=== PATIENT | female | born 1935 | race Caucasian/White ===

== ENCOUNTER 2018-12-11 13:38 | Emergency (ER) | payer OTHER ==
--- OUTSIDE RECORDS SUMMARY | 2018-12-11 13:40 | XMS REPORT | Clinical Summary ---
:1935 Author Organization [facility] Address [address] [place] [address] Care Team Providers Name Role Phone Ernestine Doan MD Primary Care Provider Allergies No Known Allergies Medications Medication Sig Dispensed Refills Start Date End Date Status metoprolol tartrate Take 50 mg by 0 Active (LOPRESSOR) 50 mg mouth 2 (two) tablet times a day. hydrALAZINE Take 10 mg by 0 Active (APRESOLINE) 10 MG mouth 2 (two) tablet times a day. cholecalciferol, Take 2,000 0 Active vitamin D3, Units by (VITAMIN D3) 2,000 mouth daily. unit capsule capsule amLODIPine Take 5 mg by 0 Active (NORVASC) 5 mg mouth daily. tablet rosuvastatin Take 20 mg by 0 Active (CRESTOR) 20 MG mouth daily. tablet estrogens, Take 1.25 mg 0 Active conjugated, by mouth (PREMARIN) 1.25 MG daily. tablet ezetimibe (ZETIA) Take 10 mg by 0 Active 10 mg tablet mouth daily. ALPRAZolam (XANAX) Take 0.25 mg 0 Active 0.25 MG tablet by mouth nightly. cevimeline (EVOXAC) Take 30 mg by 0 Active 30 mg capsule mouth 2 (two) times a day. levothyroxine Take 25 mcg 0 Active (SYNTHROID, by mouth LEVOXYL) 25 mcg every tablet morning. fenofibrate Take 48 mg by 3 06/12/2018 Active (TRICOR) 48 MG mouth daily. tablet omeprazole Take 1 90 capsule 3 09/28/2018 07/30/2019 Active (PriLOSEC) 40 MG capsule (40 capsule mg total) by mouth daily for 305 days. donepezil (ARICEPT) Take 10 mg by 0 07/06/2018 Discontinued 10 MG tablet mouth nightly. famotidine (PEPCID) Take 40 mg by 0 07/06/2018 Discontinued 40 MG tablet mouth nightly. omeprazole Take 1 90 capsule 3 07/06/2018 09/28/2018 Discontinued (PriLOSEC) 40 MG capsule (40 capsule mg total) by mouth daily. Active Problems Problem Noted Date CKD (chronic kidney disease) 07/06/2018 Nausea 07/06/2018 Hiatal hernia GERD (gastroesophageal reflux disease) Gastritis Dysphagia Chronic constipation Encounters Date Type Specialty Care Team Description 09/28/2018 Orders Only Gastroenterology Viktoria Yeung MA 08/11/2018 Telephone Gastroenterology Viktoria Yeung MA 07/21/2018 Telephone Gastroenterology Julienne Marshall 07/06/2018 Office Visit Gastroenterology Ever Pandya Chronic constipation (Primary Dx); MD Dede Nausea 06/07/2018 Hospital Encounter Radiology Ernestine Doan, Acute renal failure , unspecified acute renal failure type 06/07/2018 Hospital Encounter Radiology Ernestine Doan, Acute renal failure , unspecified acute renal failure type 06/07/2018 Transcribe Orders Radiology Ernestine Doan Acute renal failure, unspecified acute renal failure type (Primary Dx) 06/02/2018 Telephone Radiology Constance Noonan, JOSE LUIS 06/01/2018 Transcribe Orders Radiology Ernestine Doan Acute renal failure, unspecified acute renal failure type (Primary Dx) after 12/10/2017 Family History Relation Name Status Comments Father Mother Social History Tobacco Use Types Packs/Day Years Used Date Never Smoker Smokeless Tobacco: Never Used Alcohol Use Drinks/Week oz/Week Comments No Sex Assigned at Date Recorded Not on file Job Start Date Occupation Industry Not on file Not on file Not on file Travel History Travel Start Travel End No recent travel history available. Last Filed Vital Signs Vital Sign Reading Time Taken Blood Pressure 159/79 07/06/2018 1:35 PM CDT Pulse 73 07/06/2018 1:35 PM CDT Temperature 36.9 C (98.4 F) 07/06/2018 1:35 PM CDT Respiratory Rate 20 06/07/2018 2:30 PM CDT Oxygen Saturation 97% 06/07/2018 2:30 PM CDT Inhaled Oxygen Concentration - - Weight 44.9 kg (99 lb) 07/06/2018 1:35 PM CDT Height 161.3 cm (5' 3.5") 06/07/2018 9:51 AM CDT Body Mass Index 17.26 07/06/2018 1:35 PM CDT Plan of Treatment Health Maintenance Due Date Last Done Comments SHINGLES VACCINES (#1) 1985 65+ PNEUMOCOCCAL VACCINE (1 of 2 - PCV13) 2000 PNEUMOCOCCAL POLYSACCHARIDE VACCINE AGE 65 AND OVER 2000 INFLUENZA VACCINE 05/03/2018 Procedures Procedure Name Priority Date/Time Associated Diagnosis Comments SURGICAL PATHOLOGY Routine 06/07/2018 11:52 AM Results for this REQUEST CDT procedure are in the results section. SURGICAL PATHOLOGY Routine 06/07/2018 11:52 AM Results for this REQUEST CDT procedure are in the results section. US NEEDLE BIOPSY Routine 06/07/2018 11:00 AM Acute renal failure, Results for this CDT unspecified acute procedure are in renal failure type the results section. after 12/10/2017 Results Surgical pathology request (06/07/2018 11:52 AM CDT)Only the most recent of2 resultswithin the time period is included. [facility] DEPARTMENT OF PATHOLOGY AND GENOMIC MEDICINE Surgical pathology See link below for PDF Lab [facility] DEPARTMENT OF report Report PATHOLOGY AND GENOMIC MEDICINE Result status This is Supplemental Report [facility] DEPARTMENT OF for [id number] PATHOLOGY AND GENOMIC MEDICINE Performing Organization Address City/State/Zipcode Phone Number [facility] DEPARTMENT OF PATHOLOGY AND [address] [place] [address] GENOMIC MEDICINE US Needle Biopsy (06/07/2018 11:00 AM CDT) Narrative Performed At [facility] Examination:US NEEDLE BIOPSY Clinical history:"N17.9 Acute kidney failureunspecified, ACUTE RENAL FAILURE" Comparison:There are no prior studies for comparison. Conscious sedation:After the risks and benefits of conscious sedation were discussed, midazolam and fentanyl were administered intravenously.Throughout the conscious sedation duration, the patient was continuously monitored by a registered nurse. The physician intraservice [id number] time with the patient was 25 minutes. Technique:Alternative therapies and the procedure's risks and benefits were discussed with the patient.Written, informed consent was obtained. The left flank was imaged sonographically.An appropriate access site was chosen.The overlying skin was prepared using routine, sterile technique.For local analgesia, 1% buffered lidocaine solution was injected into the overlying soft tissues. Using real-time sonographic guidance, 2 18-gauge cores were obtained.The sample obtained was reviewed by the attending pathologist and was deemed sufficient for diagnostic evaluation. Estimated blood loss:Less than 1 cc. Complications:None. Specimens removed:As above. Assistants:None. IMPRESSION: Technically successful left [place] kidney biopsy. Thank you for allowing us to participate in the care of your patient. [facility]-[id number] Procedure Note Hm Interface, Radiology Results Incoming - 06/07/2018 2:58 PM CDT Examination: US NEEDLE BIOPSY Clinical history: "N17.9 Acute kidney failure unspecified, ACUTE RENAL FAILURE" Comparison: There are no prior studies for comparison. Conscious sedation: After the risks and benefits of conscious sedation were discussed, midazolam and fentanyl were administered intravenously. Throughout the conscious sedation duration, the patient was continuously monitored by a registered nurse. The physician intraservice [id number] time with the patient was 25 minutes. Technique: Alternative therapies and the procedure's risks and benefits were discussed with the patient. Written, informed consent was obtained. The left flank was imaged sonographically. An appropriate access site was chosen. The overlying skin was prepared using routine, sterile technique. For local analgesia, 1% buffered lidocaine solution was injected into the overlying soft tissues. Using real-time sonographic guidance, 2 18-gauge cores were obtained. The sample obtained was reviewed by the attending pathologist and was deemed sufficient for diagnostic evaluation. Estimated blood loss: Less than 1 cc. Complications: None. Specimens removed: As above. Assistants: None. IMPRESSION: Technically successful left [place] kidney biopsy. Thank you for allowing us to participate in the care of your patient. [facility]-[id number] Performing Organization Address City/State/Zipcode Phone Number [facility] [address] [place] [address] after 12/10/2017 Insurance Payer Benefit Plan / Group Subscriber ID Type Phone Address HUMANA MEDICARE HUMANA MEDICARE PPO/PFFS/ERS [facility] xxxxxxxxx PPO (Home) [place] [address] Aliyah Flores Reconstructive Self 1935 [facility]-[id number] [place] [address] (Home) [place] [address] Advance Directives Patient has advance care planning documents on file. For more information, please contact:Jean-Claude Harding[address] [place] [address]
--- NOTE | 2018-12-11 15:15 | EKG ---
Test Date: 2018-12-11 Test Time: 14:38:29 Meal Room Hand: ESTHELA MEASUREMENT RESULTS: Intervals: Rate: 83 PA: 130 QRSD: 70 QT: 398 QTc: 467 [place]: P: 60 PA: 130 QRS: 68 T: 75 INTERPRETIVE STATEMENTS: Normal sinus rhythm Septal infarct, age undetermined Abnormal ECG Compared to ECG 12/16/2016 17:29:00 Myocardial infarct finding now present Sinus tachycardia no longer present Electronically Signed On 12-11-18 15:14:04 CDT by Nick Menezes
--- NOTE | 2018-12-11 18:22 | ER ---
Nurse's Notes [facility] Name: Aliyah Flores Age: 83 yrs Sex: Female : 1935 Arrival Date: 12/11/2018 Time: 13:42 Bed Waiting Private MD: Bud Franklin C Diagnosis: Presentation: 12/11 13:56 Presenting complaint: Patient states: shortness of breath and fatigue on exertion x 3 ss days. Transition of care: patient was not received from another setting of care. Onset of symptoms was December 08, 2018. Risk Assessment: Do you want to hurt yourself or someone else? Patient reports no desire to harm self or others. Initial Sepsis Screen: Does the patient meet any 2 criteria? No. Patient's initial sepsis screen is negative. Does the patient have a suspected source of infection? No. Patient's initial sepsis screen is negative. Care prior to arrival: None. 13:56 Method Of Arrival: Wheelchair 13:56 Acuity: AG 3 ss Historical: - Allergies: 13:59 Azithromycin; ss - PSHx: 13:59 Hysterectomy; Mastectomy; ss - Immunization history:: Adult Immunizations up to date. - Social history:: Smoking status: Patient/guardian denies using tobacco. - Ebola Screening: : Patient denies exposure to infectious person Patient denies travel to an Ebola-affected area in the 21 days before illness onset. Assessment: 16:00 Reassessment: Pt left due to wait time. Vital Signs: 13:59 BP 103 / 56; Pulse 86; Resp 16; Temp 97.2(TE); Pulse Ox 99% on R/A; Weight 44 kg (M); ss Height 5 ft. 3 in. (160.02 cm); Pain 0/10; 13:59 Body Mass Index 17.18 (44.00 kg, 160.02 cm) ED Course: 13:42 Patient arrived in ED. mr 13:42 Bud Franklin MD is Private Physician. mr 13:58 Triage completed. ss 13:59 Arm band placed on right wrist. ss 14:55 EKG done, by pharmacy technology instructor. dt2 Administered Medications: No medications were administered Outcome: 16:00 Eloped from waiting room. ss 18:21 Patient left the ED. Signatures: Ameena Gurrola Shelby, RN RN ss Padma Keating
[2018-12-11 18:35] VITALS: BP 103/56; TEMP 97.2; O2SAT 99
== END 2018-12-11 18:21 | disposition left against medical advice (07) ==
LOC: ER 13:38
DX: R06.02 Shortness of breath (principal); Z88.1 Allergy status to other antibiotic agents; Z53.21 Procedure and treatment not carried out due to patient leaving prior to being seen by health care provider
CPT/HCPCS: 93005; 99282

== ENCOUNTER 2020-02-28 08:35 | Day surgery (SDC) | payer OTHER ==
--- NOTE | 2020-02-28 09:04 | RAD REPORT ---
EXAM DESCRIPTION: Sebastien Venegas (2 Views)02/28/2020 8:58 am CLINICAL HISTORY: Preop for temporal artery biopsy COMPARISON: 2019 FINDINGS: The lungs appear clear of acute infiltrate. Lungs are hyperaerated The heart is mildly to moderately enlarged IMPRESSION: COPD without visualization acute abnormality
[2020-02-28] MEDS ORDERED: LIDOCAINE 2% MPF 5 ML VIAL ONE (09:34)
[2020-02-28] MEDS ORDERED: FENTANYL CITR 100 MCG/2 ML ONE (09:34)
[2020-02-28] MEDS ORDERED: propofoL 200 MG/20 ML VIAL IV ONE (09:34)
[2020-02-28] MEDS ORDERED: CEFAZOLIN/SWI 1gm 1 GM/10 ML SYR ONE (09:54)
[2020-02-28] MEDS ORDERED: Ringers Lactate 1,000 ML IV ONE (09:54)
--- OUTSIDE RECORDS SUMMARY | 2020-02-28 09:55 | XMS REPORT | Clinical Summary ---
:1935 Author Organization [facility] Address [address] [place] [address] Care Team Providers Name Role Phone Robyn Doan MD Primary Care Provider Allergies No Known Allergies Medications Medication Sig Dispensed Refills Start Date End Date Status metoprolol tartrate Take 50 mg by 0 Active (LOPRESSOR) 50 mg mouth 2 (two) tablet times a day. hydrALAZINE Take 10 mg by 0 Acti ve (APRESOLINE) 10 MG mouth 2 (two) tablet times a day. cholecalciferol, Take 2,000 Units 0 Active vitamin D3, (VITAMIN by mouth daily. D3) 2,000 unit capsule capsule amLODIPine (NORVASC) 5 Take 5 mg by 0 Active mg tablet mouth daily. rosuvastatin (CRESTOR) Take 20 mg by 0 Active 20 MG tablet mouth daily. estrogens, conjugated, Take 1.25 mg by 0 Active (PREMARIN) 1.25 MG mouth daily. tablet ezetimibe (ZETIA) 10 mg Take 10 mg by 0 Active tablet mouth daily. ALPRAZolam (XANAX) 0.25 Take 0.25 mg by 0 Active MG tablet mouth nightly. cevimeline (EVOXAC) 30 Take 30 mg by 0 Active mg capsule mouth 2 (two) times a day. levothyroxine Take 25 mcg by 0 A ctive (SYNTHROID, LEVOXYL) 25 mouth every mcg tablet morning. fenofibrate (TRICOR) 48 Take 48 mg by 3 06/12/2018 Active MG tablet mouth daily. omeprazole (PriLOSEC) Take 1 capsule 90 capsule 3 09/28/2018 Active 40 MG capsule (40 mg total) by mouth daily for 305 days. Active Problems Problem Noted Date CKD (chronic kidney disease) 07/06/2018 Nausea 07/06/2018 Hiatal hernia GERD (gastroesophageal reflux disease) Gastritis Dysphagia Chronic constipation Family History Relation Name Status Comments Father [...] travel history available. 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
[2020-02-28] MEDS ORDERED: LIDOCAINE 1% 20 ML MDV ONE (10:35)
[2020-02-28] MEDS ORDERED: CODEINE 30MG/APAP 300MG TAB ONE (12:43)
[2020-02-28 13:49] VITALS: BP 131/59; TEMP 97.2; O2SAT 96
--- NOTE | 2020-02-28 19:57 | OP ---
Date of Procedure: 02/28/2020 Surgeon: Yuan Campbell MD Motorbike Courier: CHRISTAL Pfeiffer. Preoperative Diagnosis: Right-sided headache, rule out temporal arteritis with elevated CRP and sedi mentation rate. Postoperative Diagnosis: Right-sided headache, rule out temporal arteritis with elevated CRP and sed imentation rate. Procedure: Right temporal artery biopsy. Utilization of Doppler device for identification of the te mporal branch of the temporal artery. Estimated Blood Loss: Minimal. Specimen: Right temporal artery. Findings: As above. Anesthesia: MAC. Complications: None. Patient tolerated the procedure in stable condition, taken to the Recovery in good general condition. Procedure In Detail: Patient was brought to the OR and placed in supine position. MAC anesthesia wa s begun. The patient was prepped and draped in the usual sterile fashion. After MAC anesthesia begu n, then Doppler device was used to identify branch of the temporal artery anterior and superior to th e right ear and then lidocaine 1% infiltrated locally. A 15-blade was used to make a 4 cm incision. The temporal artery identified, proximal and distal control obtained, then 4 cm segment excised and sent to Pathology and then 4-0 silk used to tie off both ends, wound irrigated, bleeding controlled w ith cautery, 4-0 chromic used for subcutaneous tissue and close the skin. Sterile dressing applied. Patient was awakened and taken to Recovery room in good general condition. Discharge Note: Patient will go to Day Surgery and home when stable. Disposition: Home. Condition: Stable. Discharge Instructions: Resume home medications and diet. Activity as tolerated. No heavy lifting. Remove outer dressing in 2 days. Shower. Keep the Steri-Strips on all at times. Tylenol No.3 one tablet p.o. q.4 p.r.n. pain. Follow up in my office in 2 weeks, call for appointment. Follow up [facility] Dr. Salas in 1 week. /MODL Voice ID: [id number] Report ID: [id number]
--- NOTE | 2020-03-01 13:03 | EKG ---
Test Date: 2020-02-28 Test Time: 09:15:02 Car Supervisor: ARBEN MEASUREMENT RESULTS: Intervals: Rate: 89 MD: 166 QRSD: 72 QT: 398 QTc: 484 [place]: P: 77 MD: 166 QRS: 72 T: 67 INTERPRETIVE STATEMENTS: Normal sinus rhythm with sinus arrhythmia Normal ECG Compared to ECG 12/11/2018 14:38:29 Myocardial infarct finding no longer present Electronically Signed On 03-01-20 13:03:07 CDT by Dinesh Malik
== END 2020-02-28 13:25 | disposition home or self-care (01) ==
LOC: OR 08:35
PROVIDERS: ATTEND Surgery
PROC: 03BS0ZX Excision of Right Temporal Artery, Open Approach, Diagnostic (ICD-10-PCS; principal; 2020-02-28 10:15)
DX: R51 Headache (principal); H53.121 Transient visual loss, right eye; R79.82 Elevated C-reactive protein (CRP); R70.0 Elevated erythrocyte sedimentation rate
CPT/HCPCS: 37609; 93005; 88305; 71046; J2704; J3010; J0690; J7120

== ENCOUNTER 2020-03-27 11:49 | Inpatient (IN) | payer OTHER ==
[2020-03-27] MEDS ORDERED: ACETAMINOPHEN 500 MG TAB ONE (12:17)
[2020-03-27] MEDS ORDERED: NA CHLORIDE 0.9% 2,000 ML ONE (12:18)
[2020-03-27] MEDS ORDERED: Levofloxacin500mg IV 500 MG/100 ML BAG IV ONE (12:18)
[2020-03-27] MEDS ORDERED: CEFTRIAXONE/SWI 1gm 2 GM/20 ML SYR ONE (12:18)
--- NOTE | 2020-03-27 12:30 | RAD REPORT ---
EXAM DESCRIPTION: RAD - Chest Single View - 03/27/2020 12:24 pm CLINICAL HISTORY: Fever;Dyspnea Chest pain. COMPARISON: Chest Pa And Lat (2 Views) dated 02/28/2020; Chest Pa And Lat (2 Views) dated 12/12/2018; Chest Pa And Lat (2 Views) dated 03/23/2018; Chest Single View dated 12/16/2016 FINDINGS: Portable technique limits examination quality. Opacities are present in both lung bases likely representing pneumonia. Superimposition of soft tissu e limits evaluation. The heart is normal in size. No displaced fractures.
[2020-03-27 12:36] LABS: Absolute Lymphocytes (CBC) 0.3 K/uL (0.7-4.9); Basophils % 0.5 % (0-1.3); Hematocrit 34.5 % (36.0-45.0); Lymphocytes % 3.1 % (15.3-44.8); MPV 7.6 fL (7.6-11.3); RBC Red Blood Cell Count 3.66 M/uL (3.86-4.86)
[2020-03-27 13:09] LABS: ALT/SGPT 43 U/L (12-78); AST/SGOT 34 U/L (15-37); Albumin 2.8 g/dL (3.4-5.0); Alkaline Phosphatase 53 U/L (45-117); Amylase 69 U/L (25-115); BUN Blood Urea Nitrogen 37 mg/dL (7-18); Bicarbonate 29 mmol/L (21-32); Bilirubin Direct 0.1 mg/dL (0-0.2); Bilirubin Total 0.5 mg/dL (0.2-1.0); Creatine Phosphokinase 58 U/L (26-192); Ferritin 135.7 ng/mL (8-388); Glucose Level 154 mg/dL (74-106); Lipase 63 U/L (73-393); Protein, Total 6.6 g/dL (6.4-8.2); Sodium Level 136 mmol/L (136-145); Troponin (Emerg Dept Use Only) < 0.02 ng/mL (0.0-0.045)
[2020-03-27 13:14] LABS: Protime INR 0.92
--- OUTSIDE RECORDS SUMMARY | 2020-03-27 13:31 | XMS REPORT | Clinical Summary ---
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
--- NOTE | 2020-03-27 14:02 | EDPHYS ---
Physician Documentation [facility] Name: Aliyah Flores Age: 84 yrs Sex: Female : 1935 Arrival Date: 03/27/2020 Time: 11:59 Bed 8 Private MD: ED Physician Zia Brand HPI: 03/27 16:39 This 84 yrs old Female presents to ER via EMS with complaints of Fever, jr8 Cough, Shortness Of Breath. 16:39 The patient reports fever, with an emergency department temperature of 103 degrees jr8 Fahrenheit. Onset: The symptoms/episode began/occurred acutely, 2 day(s) ago. Modifying factors: there are no obvious modifying factors. Associated signs and symptoms: Pertinent positives: arthralgias, cough, myalgias. Severity of symptoms: At their worst the symptoms were moderate in the emergency department the symptoms are unchanged. The patient has not experienced similar symptoms in the past. The patient has not recently seen a physician. Historical: - Allergies: 12:03 Azithromycin; em - PMHx: 12:03 COPD; em - PSHx: 12:03 Hysterectomy; em 12:03 Mastectomy, Left; Mastectomy, Right; em - Immunization history:: Adult Immunizations up to date. - Social history:: Smoking status: Patient denies any tobacco usage or history of. ROS: 16:39 Eyes: Negative for injury, pain, redness, and discharge, ENT: Negative for injury, jr8 pain, and discharge, Neck: Negative for injury, pain, and swelling, Cardiovascular: Negative for chest pain, palpitations, and edema, Abdomen/GI: Negative for abdominal pain, nausea, vomiting, diarrhea, and constipation, Back: Negative for injury and pain, MS/Extremity: Negative for injury and deformity, Skin: Negative for injury, rash, and discoloration, Neuro: Negative for headache, weakness, numbness, tingling, and seizure. 16:39 Constitutional: Positive for body aches, chills, fever. 16:39 Respiratory: Positive for cough, shortness of breath. Exam: 16:39 Eyes: Pupils equal round and reactive to light, extra-ocular motions intact. Lids and jr8 lashes normal. Conjunctiva and sclera are non-icteric and not injected. Cornea within normal limits. Periorbital areas with no swelling, redness, or edema. ENT: Nares patent. No nasal discharge, no septal abnormalities noted. Tympanic membranes are normal and external auditory canals are clear. Oropharynx with no redness, swelling, or masses, exudates, or evidence of obstruction, uvula midline. Mucous membranes moist. Abdomen/GI: Soft, non-tender, with normal bowel sounds. No distension or tympany. No guarding or rebound. No evidence of tenderness throughout. Back: No spinal tenderness. No costovertebral tenderness. Full range of motion. Skin: Warm, dry with normal turgor. Normal color with no rashes, no lesions, and no evidence of cellulitis. MS/ Extremity: Pulses equal, no cyanosis. Neurovascular intact. Full, normal range of motion. Neuro: Awake and alert, GCS 15, oriented to person, place, time, and situation. Cranial nerves II-XII grossly intact. Motor strength 5/5 in all extremities. Sensory grossly intact. Cerebellar exam normal. Normal gait. 16:39 Cardiovascular: Rate: tachycardic, Rhythm: regular, Pulses: Pulses are 2+ in right radial artery and left radial artery. Heart sounds: normal, normal S1and S2, no S3 or S4, no murmur, no rub, no gallop, Edema: is not appreciated. 16:39 Respiratory: mild respiratory distress is noted, Respirations: tachypnea, that is mild, Breath sounds: rales, that are mild, are located in both bases. Vital Signs: 11:59 BP 133 / 66; Pulse 113; Resp 26; Temp 103.0(O); Pulse Ox 83% on R/A; Weight 43.09 kg; em Height 5 ft. 4 in. (162.56 cm); Pain 0/10; 12:37 BP 128 / 62; Pulse 111; Resp 14; Pulse Ox 98% ; sv 13:41 BP 133 / 66; Pulse 103; Resp 18; Temp 100.1(O); Pulse Ox 99% on 2 lpm NC; em 14:21 BP 131 / 61; Pulse 94; Resp 12; Pulse Ox 100% ; sv 15:00 BP 124 / 64; Pulse 95; Resp 14; Pulse Ox 97% ; sv 16:00 BP 117 / 68; Pulse 95; Resp 16; Pulse Ox 97% ; sv 11:59 Body Mass Index 16.31 (43.09 kg, 162.56 cm) em 11:59 placed on 2 L via NC, SPO2 98% em MDM: 12:03 Patient medically screened. [facility] 13:59 Data reviewed: vital signs, nurses notes, lab test result(s), EKG, radiologic studies, [facility] plain films. Data interpreted: Pulse oximetry: on room air is 83 %. Interpretation: hypoxia. Counseling: I had a detailed discussion with the patient and/or guardian regarding: the historical points, exam findings, and any diagnostic results supporting the discharge/admit diagnosis, lab results, radiology results, the need for further work-up and treatment in the hospital. Physician consultation: Molina Salas MD was called at 14:00, was contacted at 14:00, regarding admission, to the telemetry unit. consult, patient's condition, and will see patient. 03/27 12:04 Order name: Fibrinogen [facility] 03/27 12:04 Order name: Urine Culture [facility] 03/27 12:04 Order name: C-Reactive Protein [facility] 03/27 12:04 Order name: Amylase, Serum [facility] 03/27 12:04 Order name: Basic Metabolic Panel [facility] 03/27 12:04 Order name: Blood Culture Adult (2) [facility] 03/27 12:04 Order name: CBC with Diff; Complete Time: 15:[address] [facility] 03/27 12:04 Order name: CPK; Complete Time: 13:[address] [facility] 03/27 12:04 Order name: Lactate; Complete Time: 13:[address] [facility] 03/27 12:04 Order name: LFT's; Complete Time: 13:[address] [facility] 03/27 12:04 Order name: Lipase; Complete Time: 13:[address] [facility] 03/27 12:04 Order name: Procalcitonin; Complete Time: 13:[address] [facility] 03/27 12:04 Order name: Protime (+inr); Complete Time: 13:[address] [facility] 03/27 12:04 Order name: Ptt, Activated; Complete Time: 13:[address] [facility] 03/27 12:04 Order name: Troponin (emerg Dept Use Only); Complete Time: 13:[address] [facility] 03/27 12:04 Order name: Urine Microscopic Only [facility] 03/27 12:04 Order name: Chest Single View XRAY; Complete Time: 13:[address] [facility] 03/27 12:04 Order name: LDH; Complete Time: 13:[address] [facility] 03/27 12:04 Order name: Ferritin; Complete Time: 13:[address] [facility] 03/27 12:05 Order name: Fibrinogen; Complete Time: 13:15 [facility] 03/27 12:05 Order name: Urine Culture [facility] 03/27 12:05 Order name: C-Reactive Protein; Complete Time: 13:15 [facility] 03/27 12:05 Order name: Amylase; Complete Time: 13:15 [facility] 03/27 12:05 Order name: Basic Metabolic Panel; Complete Time: 13:15 [facility] 03/27 12:06 Order name: COVID-[address] [facility] 03/27 12:06 Order name: Strep; Complete Time: 13:[address] [facility] 03/27 13:16 Order name: Throat Culture [facility] 03/27 15:33 Order name: Manual Differential; Complete Time: 15:39 [facility] 03/27 12:04 Order name: Accucheck; Complete Time: 12:[address] [facility] 03/27 12:04 Order name: Cardiac monitoring; Complete Time: 12:[address] [facility] 03/27 12:04 Order name: EKG - Nurse/Tech; Complete Time: 12:[address] [facility] 03/27 12:04 Order name: IV Saline Lock - Large Bore; Complete Time: 12:[address] [facility] 03/27 12:04 Order name: Labs collected and sent; Complete Time: 12:[address] [facility] 03/27 12:04 Order name: O2 Per Protocol; Complete Time: 12:[address] [facility] 03/27 12:04 Order name: O2 Sat Monitoring; Complete Time: 12:[address] [facility] 03/27 14:33 Order name: CONS Physician Consult [facility] 03/27 16:00 Order name: Diet Regular; Complete Time: 16:00 em Administered Medications: 12:17 Drug: Acetaminophen 1000 mg Route: PO; sv 13:41 Follow up: Response: No adverse reaction; Marked relief of symptoms; Temperature is em decreased 12:35 Drug: NS 0.9% (30 ml/kg) 30 ml/kg Route: IV; Rate: bolus; Site: right forearm; em 14:28 Follow up: Response: No adverse reaction; IV Status: Completed infusion; IV Intake: em 1300ml 12:35 Drug: Rocephin 2 grams Route: IV; Rate: calculated rate; Site: right forearm; em 12:40 Follow up: Response: No adverse reaction; IV Status: Completed infusion; IV Intake: 10mlem 12:41 Drug: LevaQUIN 500 mg Volume: 100 ml; Route: IVPB; Infused Over: 60 mins; Site: right em forearm; 13:50 Follow up: Response: No adverse reaction; IV Status: Completed infusion; IV Intake: em 100ml Disposition: 19:38 Co-signature as Attending Physician, Zia Brand MD. [email or web address] Disposition: 03/27/20 14:01 Hospitalization ordered by Molina Salas for Inpatient Admission. Preliminary diagnosis are Pneumonia, Acute respiratory failure. - Bed requested for Telemetry/MedSurg (Inpatient). - Status is Inpatient Admission. em - Condition is Stable. - Problem is new. - Symptoms have improved. Signatures: Dispatcher [employer] Scarlett Porter RN RN Jake Velasquez RN RN em Roszak, Josh, PA PA jr8 Meli Spivey Maurice, MD MD mh7 Corrections: (The following items were deleted from the chart) 16:01 14:01 Hospitalization Ordered by Molina Salas MD for Inpatient Admission. Preliminary eb diagnosis is Pneumonia; Acute respiratory failure. Bed requested for Telemetry/MedSurg (Inpatient). Status is Inpatient Admission. Condition is Stable. Problem is new. Symptoms have improved. jr8 16:52 16:01 03/27/2020 14:01 Hospitalization Ordered by Molina Salas MD for Inpatient em Admission. Preliminary diagnosis is Pneumonia; Acute respiratory failure. Bed requested for Telemetry/MedSurg (Inpatient). Status is Inpatient Admission. Condition is Stable. Problem is new. Symptoms have improved. eb
--- NOTE | 2020-03-27 14:02 | ER ---
Nurse's Notes [facility] Name: Aliyah Flores Age: 84 yrs Sex: Female : 1935 Arrival Date: 03/27/2020 Time: 11:59 Bed 8 Private MD: Diagnosis: Pneumonia;Acute respiratory failure Presentation: 03/27 11:59 Chief complaint: EMS states: called out for cough, fever, and shortness of breath for 2 em days, temp of 99.9 on scene, has not had any medications [employer]. Coronavirus screen: Surgical mask placed on patient. Patient moved to private room, placed in contact and droplet isolation with eye protection until further assessment. Patient reports a cough. Patient reports shortness of breath or difficulty breathing. Patient reports a measured and/or subjective temperature greater than 100.4F. Patient denies travel on a cruise ship or to a country the [facility] currently lists as an affected area. Patient denies contact with known and/or suspected case of COVID-19. Ebola Screen: Patient negative for fever greater than or equal to 101.5 degrees Fahrenheit, and additional compatible Ebola Virus Disease symptoms Patient denies exposure to infectious person. Patient denies travel to an Ebola-affected area in the 21 days before illness onset. No symptoms or risks identified at this time. Initial Sepsis Screen: Does the patient meet any 2 criteria? RR > 20 per min. Temp <36.0*C (96.8*F)) or > 38.3*C (100.9*F). HR > 90 bpm. Yes Does the patient have a suspected source of infection? Yes: Productive cough/pneumonia. Risk Assessment: Do you want to hurt yourself or someone else? Patient reports no desire to harm self or others. Onset of symptoms was March 25, 2020. 11:59 Method Of Arrival: EMS: [facility] em 11:59 Acuity: AG 2 em Historical: - Allergies: 12:03 Azithromycin; em - PMHx: 12:03 COPD; em - PSHx: 12:03 Hysterectomy; em 12:03 Mastectomy, Left; Mastectomy, Right; em - Immunization history:: Adult Immunizations up to date. - Social history:: Smoking status: Patient denies any tobacco usage or history of. Screenin:03 Abuse screen: Denies threats or abuse. Denies injuries from another. Nutritional sv screening: No deficits noted. Tuberculosis screening: No symptoms or risk factors identified. Fall Risk None identified. Assessment: 12:00 General: Appears uncomfortable, Behavior is calm, cooperative, Denies fever. Pain: em Denies pain. Neuro: Level of Consciousness is awake, alert, obeys commands, Oriented to person, place, time, situation, Appropriate for age. Cardiovascular: Reports shortness of breath, Denies chest pain, Rhythm is sinus tachycardia. Respiratory: Reports shortness of breath cough that is non-productive, Airway is patent Respiratory effort is labored, Respiratory pattern is regular, tachypnea Breath sounds are diminished. GI: Patient currently denies nausea, vomiting. Derm: Skin is intact, is thin, Skin is dry, Skin is pale, Skin temperature is hot. Musculoskeletal: Capillary refill < 3 seconds, Range of motion: intact in all extremities. 12:04 Reassessment: Code Sepsis called. sv 12:37 Reassessment: COVID-19 obtained. sv 13:41 Reassessment: Patient appears in no apparent distress at this time. Patient and/or em family updated on plan of care and expected duration. Pain level reassessed. Patient is alert, oriented x 3, equal unlabored respirations, skin warm/dry/pink. Patient states feeling better. Patient states symptoms have improved. 14:30 Reassessment: Patient appears in no apparent distress at this time. Patient and/or em family updated on plan of care and expected duration. Pain level reassessed. Patient is alert, oriented x 3, equal unlabored respirations, skin warm/dry/pink. 15:35 Reassessment: Patient appears in no apparent distress at this time. Patient and/or em family updated on plan of care and expected duration. Pain level reassessed. Patient is alert, oriented x 3, equal unlabored respirations, skin warm/dry/pink. 16:27 Reassessment: Patient appears in no apparent distress at this time. Patient and/or em family updated on plan of care and expected duration. Pain level reassessed. Patient is alert, oriented x 3, equal unlabored respirations, skin warm/dry/pink. Vital Signs: 11:59 BP 133 / 66; Pulse 113; Resp 26; Temp 103.0(O); Pulse Ox 83% on R/A; Weight 43.09 kg; em Height 5 ft. 4 in. (162.56 cm); Pain 0/10; 12:37 BP 128 / 62; Pulse 111; Resp 14; Pulse Ox 98% ; sv 13:41 BP 133 / 66; Pulse 103; Resp 18; Temp 100.1(O); Pulse Ox 99% on 2 lpm NC; em 14:21 BP 131 / 61; Pulse 94; Resp 12; Pulse Ox 100% ; sv 15:00 BP 124 / 64; Pulse 95; Resp 14; Pulse Ox 97% ; sv 16:00 BP 117 / 68; Pulse 95; Resp 16; Pulse Ox 97% ; sv 11:59 Body Mass Index 16.31 (43.09 kg, 162.56 cm) em 11:59 placed on 2 L via NC, SPO2 98% em ED Course: 11:59 Patient arrived in ED. em 12:02 Arm band placed on. sv 12:03 Oleksandr Gallego PA is PHCP. jr8 12:03 Zia Brand MD is Attending Physician. jr8 12:03 Triage completed. em 12:03 Patient has correct armband on for positive identification. Bed in low position. Call sv light in reach. Pulse ox on. NIBP on. 12:04 Jake Velasquez, RN is Primary Nurse. em 12:15 X-ray(s) taken. sv 12:17 Chest Single View XRAY In Process Unspecified. EDMS 12:21 First set of blood cultures drawn by ED staff. Initial lab(s) drawn, by ED staff, sent sv to lab. 12:31 Second set of blood cultures drawn by ED staff. sv 13:05 Nurse Practitioner and/or Physician Front End Web Designer to see patient. sv 13:07 EKG done, by ED staff, reviewed by Oleksandr ARVIZU. mh5 13:08 monitoring tech on. mh5 14:00 Molina Salas MD is Hospitalizing Provider. jr8 16:28 No provider procedures requiring assistance completed. Patient admitted, IV remains in em place. Administered Medications: 12:17 Drug: Acetaminophen 1000 mg Route: PO; sv 13:41 Follow up: Response: No adverse reaction; Marked relief of symptoms; Temperature is em decreased 12:35 Drug: NS 0.9% (30 ml/kg) 30 ml/kg Route: IV; Rate: bolus; Site: right forearm; em 14:28 Follow up: Response: No adverse reaction; IV Status: Completed infusion; IV Intake: em 1300ml 12:35 Drug: Rocephin 2 grams Route: IV; Rate: calculated rate; Site: right forearm; em 12:40 Follow up: Response: No adverse reaction; IV Status: Completed infusion; IV Intake: 10mlem 12:41 Drug: LevaQUIN 500 mg Volume: 100 ml; Route: IVPB; Infused Over: 60 mins; Site: right em forearm; 13:50 Follow up: Response: No adverse reaction; IV Status: Completed infusion; IV Intake: em 100ml Intake: 12:40 IV: 10ml; Total: 10ml. em 13:50 IV: 100ml; Total: 110ml. em 14:28 IV: 1300ml; Total: 1410ml. em Outcome: 14:01 Decision to Hospitalize by Provider. tete 16:29 Admitted to Tele accompanied by nurse, via stretcher, room 414, Report called to lizet Serna RN 16:29 Condition: good 16:29 Instructed on the need for admit, Demonstrated understanding of instructions. 16:52 Patient left the ED. em Signatures: Dispatcher [employer] Scarlett Porter RN RN sv Munoz, Edgar, RN RN em Roszak, Josh, PA PA [facility] Arleen Gonzalez [facility]
[2020-03-27 15:32] LABS: Blood Morphology Comment NOT SEEN (NOT SEEN); Platelet Estimate ADEQ
[2020-03-27] MEDS ORDERED: ALBUTEROL INHALER 60 PUFF/8 GM IH PRN (18:17)
[2020-03-27] MEDS ORDERED: ONDANSETRON 4 MG/2 ML VIAL IV PRN (18:17)
[2020-03-27] MEDS: dexAMETHasone 10 MG/ML VIAL IV SCH (18:55)
[2020-03-27 19:14] VITALS: BMI 17.5
[2020-03-27 19:42] LABS: Urine Appearance CLEAR; Urine Bilirubin NEGATIVE (NEG); Urine Blood TRACE (NEG); Urine Color YELLOW; Urine Glucose NEGATIVE (NEG); Urine Protein 1+ (NEG); Urine Specific Gravity 1.015 (1.005-1.030); Urine Urobilinogen 0.2 mg/dL (0.2-1.0)
[2020-03-27 21:05] LABS: Urine Bacteria 20-50 /HPF (<20); Urine Culture Reflex Order NOT NEEDED; Urine RBC <5 /HPF (NONE SEEN); Urine Urothelial Cells <5 /HPF (NONE SEEN)
--- NOTE | 2020-03-27 21:13 | P.HP ---
Certification for Inpatient Patient admitted to: Inpatient With expected LOS: >2 Midnights Practitioner: I am a practitioner with admitting privileges, knowledge of patient current condition, hospital course, and medical plan of care. Services: Services provided to patient in accordance with Admission requirements found in Title 42 Section 412.3 of the Code of Federal Regulations Patient History Date of Service: 03/27/20 Reason for admission: CHILLS, DYSPNEA History of Present Illness: MS LAM IS 84 YEARS OLD COPD PATIENT WITH TEMPORAL ARTERITIS WHO WAS ON STEROIDS STARTED ABOUT 2 WEEKS AGO, STARTED TO HAVE CHILLS FOR ABOUT 2 DAYS, SHE THOUGHT IT WAS STEROIDS AND SHE QUIT IT. BEFORE THAT I HAD REDUCED STEROIDS TO 20 MG DAILY. SHE HAS NO MORE HEADACHES. SHE WAS FOUND TO HAVE TEMPERATURE OF 103 DEG F IN ER WITH BILATERAL PATCHY PNEUMONIA, NORMAL PROCALCITONIN AND HIGH CRP. SHE IS NOW ADMITTED FOR IV ABX AND POSSIBLE COVID INFECTION WITH HYPOXIA OF 83% ON RA. SHE IS CLINICALLY IMPROVING ON NEBS, IV STEROIDS AND IV LEVAQUIN. SHE HAS NOT HAD ANY EXPOSURE TO COVID INFECTION. THE ONLY OUTSIDE CONTACT IS FROM A HOUSE KEEPER WHO WEARS MASK AND DOES NOT HAVE INFECTION. Allergies azithromycin [From Zithromax] Allergy (Verified 02/28/20 08:42) unknown Home Medications: ALPRAZolam [Xanax] 0.25 mg PO DAILY 02/28/20 Amlodipine Besylate [Norvasc] 2.5 mg PO DAILY 02/28/20 Cetirizine HCl [Zyrtec] 5 mg PO DAILY 02/28/20 Cevimeline HCl 30 mg PO BID 02/28/20 Desonide 15 gm TP BID 02/28/20 Fluticasone/Umeclidin/Vilanter [Trelegy Ellipta 100-62.5-25] 1 each IH DAILY 02/28/20 Glucosamine/Chondro Love A [Cosamin Ds Tablet] 1 each PO BID 02/28/20 Labetalol HCl [Trandate*] 1 tab PO BID 02/28/20 Levothyroxine Sodium 25 mcg PO DAILY 02/28/20 Memantine HCl [Namenda] 10 mg PO BID 02/28/20 Mometasone Furoate [Nasonex] 17 gm NS BID 02/28/20 hydrOXYzine HCL [Atarax] 25 mg PO BID 02/28/20 - Past Medical/Surgical History Has patient received pneumonia vaccine in the past: Yes Diabetic: No -: Breast CA -: melanoma -: HTN -: Hysterectomy -: Mastectomy (bilateral) - Family History Father -: Heart disease Mother -: Diabetes - Social History Smoking Status: Never smoker Alcohol use: No CD- Drugs: No Caffeine use: No Place of Residence: Home Review of Systems 10-point ROS is otherwise unremarkable General: Weakness, Malaise Respiratory: Shortness of Breath, As per HPI Physical Examination - Vital Signs Temperature: 98.0 F Blood Pressure: 136/58 Pulse: 102 Respirations: 18 Pulse Ox (%): 98 - Physical Exam General: Alert, Mild distress (I DID TELEHEALTH VISIT WITH HER. SHE LOOKS COMFORTABLE WITH OXYGEN THERAPY, SHOWS NO SIGNS OF RESPIRATORY DISTRESS. HE LIPS ARE PINK AND IS ABLE TO CONVERSE WITOUT STOPPING TO BREATH. ) Neck: JVD not distended Respiratory: Other ( ABOVE.) Cardiovascular: Regular rate/rhythm (ON TENEMETRY MONITOR) Integumentary: No rashes Neurological: Normal speech, Normal strength at 5/5 x4 extr Lymphatics: No axilla or inguinal lymphadenopathy - Studies Laboratory Data (last 24 hrs) 03/27/20 12:21: WBC 8.8, Hgb 11.5 L, Hct 34.5 L, Plt Count 221 03/27/20 12:21: Sodium 136, Potassium 4.0, BUN 37 H, Creatinine 1.31 H, Glucose 154 H, Total Bilirubin 0.5, AST 34, ALT 43, Alkaline Phosphatase 53, Amylase 69, Lipase 63 L 03/27/20 12:21: PT 10.9, INR 0.92, APTT 22.6 L Microbiology Data (last 24 hrs): 03/27/20 12:31 Throat Group A Streptococcus Rapid Screen - Final Assessment and Plan - Problems (Diagnosis) (1) Atypical pneumonia Current Visit: Yes Status: Acute Plan: IV ABX. LEVAQUIN. THERE IS SOME CHANCE THAT SHE MAY BE COVID POSITIVE HER REPORT IS PENDING. THERE IS NO EXPOSURE EXCEPT FOR GOING TO [facility] PER HER. SUPPORTIVE CARE. (2) COPD (chronic obstructive pulmonary disease) Current Visit: Yes Status: Chronic Plan: RESUEME NEBS ANORO. 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 (4) Cachexia Current Visit: Yes Status: Chronic Plan: SHE HAS BEEN ALWAYS NORMALLY LOW WEIGHT. (5) Temporal arteritis Current Visit: Yes Status: Acute Plan: THIS WAS DIAGNOSED WITH HER TEMORAL HEADACHE, EAR PAIN ON RIGHT SIDE , ELEVATED SED RATE AND CRP. SHE HAD BIOPSY BY DR. VALENTINE THAT SHOWED HEALING ARTERITIS. I WILL CONTINUE STEROIDS AT 20 MG FOR A YEAR. CURRENTLY SHE IS ON STRESS DOSE OF IT. - Advance Directives Does patient have a Living Will: No Does patient have a Durable POA for Healthcare: No
[2020-03-27] MEDS: LABETALOL HCL 100 MG TAB PO SCH (21:51)
[2020-03-27] MEDS: hydrOXYzine HCL 25 MG TAB PO SCH (21:51)
[2020-03-27] MEDS: ENOXAPARIN 30 MG/0.3 ML SQ SCH (21:51)
[2020-03-27] MEDS: MEMANTINE HCL 10 MG TABLET PO SCH (21:52)
[2020-03-27] MEDS: ACETAMINOPHEN 500 MG TAB PO PRN (22:15)
[2020-03-27] MEDS: ALPRAZOLAM 0.25 MG TABLET PO SCH (22:15)
[2020-03-27 22:38] LABS: MPV 7.6 fL (7.6-11.3)
[2020-03-27 22:39] LABS: Platelet Estimate ND
[2020-03-28] MEDS: dexAMETHasone 10 MG/ML VIAL IV SCH ×2 (01:11→08:45)
[2020-03-28 06:05] LABS: Absolute Lymphocytes (CBC) 0.2 K/uL (0.7-4.9); Basophils % 0.1 % (0-1.3); Hematocrit 32.5 % (36.0-45.0); Lymphocytes % 3.2 % (15.3-44.8); MPV 7.7 fL (7.6-11.3); RBC Red Blood Cell Count 3.43 M/uL (3.86-4.86)
[2020-03-28 06:25] LABS: Potassium 3.6 mmol/L (3.5-5.1)
[2020-03-28] MEDS: hydrOXYzine HCL 25 MG TAB PO SCH ×2 (08:44→20:31)
[2020-03-28] MEDS: MEMANTINE HCL 10 MG TABLET PO SCH ×2 (08:48→20:32)
[2020-03-28] MEDS: LEVOTHYROXINE SOD 0.025 MG TAB PO SCH (08:48)
[2020-03-28] MEDS: CETIRIZINE HCL 5 MG TABLET PO SCH (08:48)
[2020-03-28] MEDS: CEVIMELINE HCL 30 MG PO SCH ×2 (08:52→20:33)
[2020-03-28] MEDS: HOME MED 1 EA UNK (Fluticasone/Umeclidin/Vilanter [Trelegy Ellipta 100-62.5-25] 1 EACH) IH SCH (08:54)
[2020-03-28] MEDS: MOMETASONE FUROATE 17 GM NS SCH ×2 (08:54→20:33)
[2020-03-28] MEDS: DESONIDE 15 GM TP SCH ×2 (08:54→20:39)
[2020-03-28] MEDS: LABETALOL HCL 100 MG TAB PO SCH ×2 (08:55→20:34)
[2020-03-28] MEDS: ALPRAZOLAM 0.25 MG TABLET PO SCH ×2 (08:55→23:43)
[2020-03-28] MEDS ORDERED: ENOXAPARIN 40 MG/0.4 ML SQ SCH (09:00)
[2020-03-28] MEDS ORDERED: AMLODIPINE 2.5 MG TAB PO SCH ×2 (09:00→09:06)
[2020-03-28] MEDS ORDERED: levoFLOXacin 500 MG TAB PO SCH (11:00)
--- NOTE | 2020-03-28 11:05 | P.CNS ---
Date of Consult: 03/28/20 Reason for Consult: Poss pneumonia Chief Complaint: CHILLS, DYSPNEA History of Present Illness: Pt is 84 yrs of age with temporal arterits aw chills and SOB since Tuesday. No cough. Covid neg. No pulmonary compliants. High fever. Pt is on pred Allergies azithromycin [From Zithromax] Allergy (Verified 02/28/20 08:42) unknown Home Medications: ALPRAZolam [Xanax] 0.25 mg PO DAILY 02/28/20 Amlodipine Besylate [Norvasc] 2.5 mg PO DAILY 02/28/20 Cetirizine HCl [Zyrtec] 5 mg PO DAILY 02/28/20 Cevimeline HCl 30 mg PO BID 02/28/20 Desonide 15 gm TP BID 02/28/20 Fluticasone/Umeclidin/Vilanter [Trelegy Ellipta 100-62.5-25] 1 each IH DAILY 02/28/20 Glucosamine/Chondro Love A [Cosamin Ds Tablet] 1 each PO BID 02/28/20 Labetalol HCl [Trandate*] 1 tab PO BID 02/28/20 Levothyroxine Sodium 25 mcg PO DAILY 02/28/20 Memantine HCl [Namenda] 10 mg PO BID 02/28/20 Mometasone Furoate [Nasonex] 17 gm NS BID 02/28/20 hydrOXYzine HCL [Atarax] 25 mg PO BID 02/28/20 - Past Medical/Surgical History Diabetic: No -: Breast CA -: melanoma -: HTN -: Hysterectomy -: Mastectomy (bilateral) - Family History Father Medical History: Heart disease Mother Medical History: Diabetes - Social History Smoking Status: Never smoker Alcohol use: No CD- Drugs: No Caffeine use: No Place of Residence: Home Review of Systems 10-point ROS is otherwise unremarkable Physical Examination Temp Pulse Resp BP Pulse Ox 96.9 F 92 H 18 111/73 92 03/28/20 08:00 03/28/20 08:54 03/28/20 08:00 03/28/20 08:54 03/28/20 08:00 General: Alert, Oriented x3 Neck: Supple Respiratory: Clear to auscultation bilaterally Cardiovascular: No edema, Regular rate/rhythm Laboratory Data (last 24 hrs) 03/27/20 12:21: WBC 8.8, Hgb 11.5 L, Hct 34.5 L, Plt Count 221 03/27/20 12:21: Sodium 136, Potassium 4.0, BUN 37 H, Creatinine 1.31 H, Glucose 154 H, Total Bilirubin 0.5, AST 34, ALT 43, Alkaline Phosphatase 53, Amylase 69, Lipase 63 L 03/27/20 12:21: PT 10.9, INR 0.92, APTT 22.6 L - Problems (1) Pneumonia Current Visit: Yes Status: Acute Plan: poss penumonia. Aw with chills. now afebrile SAt >90% on RA. COvid neg. LAbs rev.Not sure why pt is on TreelgyMild anemiaaBialteral breast implants. Can D/c home. On Levaquin for 7 days cultures neg . Pt is feeling fine Qualifiers: Pneumonia type: due to unspecified organism
[2020-03-28 11:43] LABS: Arterial Blood Carboxyhemoglob 0.9 % (0-1.5); Blood Gas Oxyhemoglobin 87.8 % (94-97); Blood O2 Saturation 90.1 % (92-98.5)
[2020-03-28] MEDS: levoFLOXacin 500 MG TAB PO SCH (11:55)
[2020-03-28] MEDS ORDERED: Levofloxacin500mg IV 500 MG/100 ML BAG IV SCH (12:00)
[2020-03-28] MEDS: ACETAMINOPHEN 500 MG TAB PO PRN ×2 (14:33→20:42)
--- NOTE | 2020-03-28 18:01 | PN ---
Subjective: Ms. Flores is doing really lot better than yesterday. Denies any chest pain, nausea, vo miting. She is breathing a lot better. Physical Examination: Vital Signs: Blood pressure 117/73, temperature 96.9, pulse is 92. HEENT: No JVD. No carotid bruits. Patient is cachectic for long time. Heart: Regular. Abdomen: No guarding. No rebound. No rigidity. Chest: Clear. Assessment/plan: 1.Atypical pneumonia. Continue Levaquin once a day. The patient is clinically responding. Possibl e discharge tomorrow. 2.Chronic obstructive pulmonary disease with hypoxia. May need oxygen at home. We will wait 1 more day before we decide. Continue nebulizer treatments and Trelegy once a day, which has worked really well for her. 3.Cachectic status and she does not eat properly. Does not have a good appetite. I will discuss wi th patient's about having good protein diet every day. 4.Temporal arteritis. The patient is on prednisone once a day at home 20 mg which will continue. T his is a recent diagnosis for the headache on right side holiness she had. She still has a headache. She could not tolerate 40 mg of prednisone. She is a small caliber small person and we will continue 20 mg to see how that responds to her sedimentation rate and CRP. RVD/MODL Voice ID: [id number] Report ID: [id number]
--- NOTE | 2020-03-28 18:16 | EKG ---
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
[2020-03-28] MEDS: ENOXAPARIN 30 MG/0.3 ML SQ SCH (20:38)
[2020-03-28] MEDS: ENSURE ENLIVE 237 ML CAN PO SCH (20:47)
[2020-03-29] MEDS: ACETAMINOPHEN 500 MG TAB PO PRN ×2 (05:20→11:10)
[2020-03-29 05:26] LABS: Absolute Lymphocytes (CBC) 0.4 K/uL (0.7-4.9); Basophils % 0.2 % (0-1.3); Hematocrit 30.2 % (36.0-45.0); Lymphocytes % 5.4 % (15.3-44.8); MPV 7.4 fL (7.6-11.3); RBC Red Blood Cell Count 3.21 M/uL (3.86-4.86)
[2020-03-29] MEDS ORDERED: PNEUMOCOCCAL VACCINE 0.5 ML IMVAC ONE (08:00)
[2020-03-29 08:19] VITALS: O2SAT 94
[2020-03-29] MEDS: LEVOTHYROXINE SOD 0.025 MG TAB PO SCH (08:59)
[2020-03-29] MEDS: levoFLOXacin 500 MG TAB PO SCH (08:59)
[2020-03-29] MEDS: CEVIMELINE HCL 30 MG PO SCH (09:00)
[2020-03-29] MEDS: DESONIDE 15 GM TP SCH (09:00)
[2020-03-29] MEDS: HOME MED 1 EA UNK (Fluticasone/Umeclidin/Vilanter [Trelegy Ellipta 100-62.5-25] 1 EACH) IH SCH (09:00)
[2020-03-29] MEDS: LABETALOL HCL 100 MG TAB PO SCH (09:00)
[2020-03-29] MEDS: MEMANTINE HCL 10 MG TABLET PO SCH (09:00)
[2020-03-29] MEDS: CETIRIZINE HCL 5 MG TABLET PO SCH (09:00)
[2020-03-29] MEDS: MOMETASONE FUROATE 17 GM NS SCH (09:00)
[2020-03-29] MEDS ORDERED: predniSONE 20 MG TAB PO SCH (09:00)
[2020-03-29] MEDS: hydrOXYzine HCL 25 MG TAB PO SCH (09:01)
[2020-03-29] MEDS: ENSURE ENLIVE 237 ML CAN PO SCH (09:01)
[2020-03-29] MEDS: ALPRAZOLAM 0.25 MG TABLET PO SCH (09:05)
[2020-03-29 09:09] VITALS: BP 138/71
[2020-03-29 09:40] VITALS: TEMP 97.1
--- NOTE | 2020-03-30 16:32 | P.DS ---
Admission Date: 03/27/20 Discharge Date: 03/30/20 Disposition: ROUTINE DISCHARGE Discharge Condition: FAIR Reason for Admission: CHILLS, DYSPNEA - Problems (1) Atypical pneumonia Status: Acute (2) COPD (chronic obstructive pulmonary disease) Status: Chronic (3) CKD (chronic kidney disease) stage 2, GFR 60-89 ml/min Status: Chronic (4) Cachexia Status: Chronic (5) Temporal arteritis Status: Acute Brief History of Present Illness: MS LAM IS 84 YEARS OLD COPD PATIENT WITH TEMPORAL ARTERITIS WHO WAS ON STEROIDS STARTED ABOUT 2 WEEKS AGO, STARTED TO HAVE CHILLS FOR ABOUT 2 DAYS, SHE THOUGHT IT WAS STEROIDS AND SHE QUIT IT. BEFORE THAT I HAD REDUCED STEROIDS TO 20 MG DAILY. SHE HAS NO MORE HEADACHES. SHE WAS FOUND TO HAVE TEMPERATURE OF 103 DEG F IN ER WITH BILATERAL PATCHY PNEUMONIA, NORMAL PROCALCITONIN AND HIGH CRP. SHE IS NOW ADMITTED FOR IV ABX AND POSSIBLE COVID INFECTION WITH HYPOXIA OF 83% ON RA. SHE IS CLINICALLY IMPROVING ON NEBS, IV STEROIDS AND IV LEVAQUIN. SHE HAS NOT HAD ANY EXPOSURE TO COVID INFECTION. THE ONLY OUTSIDE CONTACT IS FROM A HOUSE KEEPER WHO WEARS MASK AND DOES NOT HAVE INFECTION. Hospital Course: DARREN HAS COPD, CACHEXIA, GIANT CELL ARTERTIS, COMES WITH DYSPNEA , HYPOXIA, ATYPICAL PNEUMONIA. SHE IMPROVES WITH LEVAQUIN AND NEBS WITH ONE DAY OF STEROIDS. SHE WAS ABLE TO GO HOME ON OXYGEN AND ORAL ABX. SHE WAS CALLED NEXT DAY BY ME. SHE IS GIVE ORAL ABX TO GO HOME. Vital Signs/Physical Exam: Temp Pulse Resp BP Pulse Ox 97.1 F 104 H 18 138/71 92 03/29/20 08:00 03/29/20 09:00 03/29/20 08:00 03/29/20 09:00 03/29/20 08:00 General: Mild distress HEENT: Atraumatic, PERRLA, EOMI Neck: Supple, JVD not distended Respiratory: Diminished Cardiovascular: Regular rate/rhythm, Normal S1 S2 Gastrointestinal: Normal bowel sounds, No tenderness Musculoskeletal: No tenderness Integumentary: No rashes Neurological: Normal speech, Normal tone, Normal affect Lymphatics: No axilla or inguinal lymphadenopathy Laboratory Data at Discharge: WBC 8.3 K/uL (4.3-10.9) D 03/29/20 05:04 Hgb 10.4 g/dL (12.0-15.0) L 03/29/20 05:04 Hct 30.2 % (36.0-45.0) L 03/29/20 05:04 Plt Count 243 K/uL (152-406) 03/29/20 05:04 PT 10.9 SECONDS (9.5-12.5) 03/27/20 12:21 INR 0.92 03/27/20 12:21 APTT 22.6 SECONDS (24.3-36.9) L 03/27/20 12:21 Sodium 138 mmol/L (136-145) 03/28/20 05:18 Potassium 3.6 mmol/L (3.5-5.1) 03/28/20 05:18 BUN 22 mg/dL (7-18) H 03/28/20 05:18 Creatinine 0.92 mg/dL (0.55-1.3) 03/28/20 05:18 Glucose 155 mg/dL (74-106) H 03/28/20 05:18 Total Bilirubin 0.5 mg/dL (0.2-1.0) 03/27/20 12:21 AST 34 U/L (15-37) 03/27/20 12:21 ALT 43 U/L (12-78) 03/27/20 12:21 Alkaline Phosphatase 53 U/L (45-117) 03/27/20 12:21 Amylase 69 U/L (25-115) 03/27/20 12:21 Lipase 63 U/L (73-393) L 03/27/20 12:21 Home Medications: ALPRAZolam [Xanax*] 0.25 mg PO DAILY 02/28/20 Amlodipine Besylate [Norvasc] 2.5 mg PO DAILY 02/28/20 Cetirizine HCl [Zyrtec] 5 mg PO DAILY 02/28/20 Cevimeline HCl 30 mg PO BID 02/28/20 Desonide 15 gm TP BID 02/28/20 Fluticasone/Umeclidin/Vilanter [Trelegy Ellipta 100-62.5-25] 1 each IH DAILY 02/28/20 Glucosamine/Chondro Love A [Cosamin Ds Tablet] 1 each PO BID 02/28/20 Labetalol HCl [Trandate*] 1 tab PO BID 02/28/20 Levothyroxine Sodium 25 mcg PO DAILY 02/28/20 Memantine HCl [Namenda] 10 mg PO BID 02/28/20 Mometasone Furoate [Nasonex] 17 gm NS BID 02/28/20 hydrOXYzine HCL [Atarax*] 25 mg PO BID 02/28/20 levoFLOXacin [Levaquin*] 250 mg PO DAILY #10 tab 03/29/20 predniSONE [Deltasone] 20 mg PO DAILY #30 tab 03/29/20 predniSONE [Prednisone*] 20 mg PO DAILY tab 03/29/20 New Medications: levoFLOXacin [Levaquin*] 250 mg PO DAILY #10 tab predniSONE [Deltasone] 20 mg PO DAILY #30 tab Followup: Darren Redmond MD [ACTIVE - CAN ADMIT] -
== END 2020-03-29 11:48 | disposition home or self-care (01) | DRG 194 ==
LOC: ER 11:49 → 4TH 14:28 → 2ND 23:32
PROVIDERS: ADMIT Internal Medicine; ATTEND Internal Medicine
PROC: 8E0ZXY6 Isolation (ICD-10-PCS; principal; 2020-03-27)
DX: J18.9 Pneumonia, unspecified organism (principal); J44.0 Chronic obstructive pulmonary disease with (acute) lower respiratory infection; R64 Cachexia; Z68.1 Body mass index [BMI] 19.9 or less, adult; Z20.828 Contact with and (suspected) exposure to other viral communicable diseases; Z88.1 Allergy status to other antibiotic agents; Z79.01 Long term (current) use of anticoagulants; Z79.890 Hormone replacement therapy; Z79.899 Other long term (current) drug therapy; Z90.710 Acquired absence of both cervix and uterus; Z85.3 Personal history of malignant neoplasm of breast; Z90.13 Acquired absence of bilateral breasts and nipples; I12.9 Hypertensive chronic kidney disease with stage 1 through stage 4 chronic kidney disease, or unspecified chronic kidney disease; N18.2 Chronic kidney disease, stage 2 (mild); M31.6 Other giant cell arteritis; R05 Cough; R50.9 Fever, unspecified; R06.02 Shortness of breath
CPT/HCPCS: 36415; 71045; 80048; 80076; 81001; 82150; 82550; 82728; 82805; 83605; 83615; 83690; 84145; 84484; 85025; 85049; 85384; 85610; 85730; 86140; 87040; 87070; 87081; 87086; 87088; 90670; 93005; 94760; 96365; 96375; 99285; J0696; J1100; J1650; J7030; J7512; U0002

== ENCOUNTER 2023-03-16 06:35 | Day surgery (SDC) | payer OTHER ==
[2023-03-16] MEDS ORDERED: GLYCOPYRROLATE 0.2 MG/ML SYR ONE (06:58)
[2023-03-16] MEDS ORDERED: Phenylephrine HCl 10 MG/ML 1 ML VIAL ONE (06:59)
[2023-03-16] MEDS ORDERED: LIDOCAINE 4% TOP SOLUTION ONE (06:59)
[2023-03-16] MEDS: NA CHLORIDE 0.9% 500 ML ONE ×2 (07:15→07:59)
[2023-03-16] MEDS ORDERED: LIDOCAINE 1% MPF 30 ML VIAL ONE ×2 (07:32→07:45)
[2023-03-16] MEDS ORDERED: LIDOCAINE VISCOUS 2% SOLN 15 ML UDC ONE (07:32)
[2023-03-16] MEDS ORDERED: propofoL 200 MG/20 ML VIAL IV ONE (07:45)
--- NOTE | 2023-03-16 08:33 | P.OP ---
Date of Service: 03/16/23 (Right upper lobe transbronchial biopsy) Findings and Operative Technique Patient is 87 years of age evaluated my office for right upper lobe infiltrate denies any fever chills cough or phlegm as a reason for bronchoscopy to rule out infectious cause Narrative report after obtaining informed consent from the patient she was premedicated by anesthesia. Finding normal vocal cords normal trachea normal right and left lung bronchial anatomy there was no endobronchial lesions or any pus visible. Multiple biopsies were obtained from the right upper lobe including a BAL. Patient tolerated the procedure very well did not experience any arrhythmias hypotension or hypoxemia. Postoperative chest x-ray will be done in follow-up with me in in about a week or so
[2023-03-16 09:57] VITALS: O2SAT 97
--- NOTE | 2023-03-16 10:07 | RAD REPORT ---
EXAM DESCRIPTION: RAD - Chest Single View - 03/16/2023 9:49 am CLINICAL HISTORY: Bronchoscopy FINDINGS: A pneumothorax is not visualized status post bronchoscopy
--- NOTE | 2023-03-16 10:18 | RAD REPORT ---
EXAM DESCRIPTION: RAD - Fluoroscopy <1 Hour - 03/16/2023 10:11 am CLINICAL HISTORY: Device placement bronchoscopy FINDINGS: Bronchoscope placed into the right lung. The procedure performed by Dr. Redmond. Six fluoroscopic spot images obtained. Fluoroscopy time 229 seconds
[2023-03-16 10:44] VITALS: BP 128/72; TEMP 97
== END 2023-03-16 10:33 | disposition home or self-care (01) ==
LOC: OR 06:35
PROVIDERS: ATTEND Internal Medicine Sleep Medicine
PROC: 0BDC8ZX Extraction of Right Upper Lung Lobe, Via Natural or Artificial Opening Endoscopic, Diagnostic (ICD-10-PCS; principal; 2023-03-16 08:00)
DX: J85.0 Gangrene and necrosis of lung (principal)
CPT/HCPCS: 31628; 31624; 88108; 88312 ×2; 88305 ×2; 87015; 87206; 87116; 71045; J2704; J2370; J2001 ×2; J7040; 76000

== ENCOUNTER 2023-03-17 12:43 | Emergency (ER) | payer OTHER ==
--- OUTSIDE RECORDS SUMMARY | 2023-03-17 12:58 | XMS REPORT | Continuity of Care Document ---
:1935 Author Organization [facility] t Address [address] [place] [address] Care Team Providers Name Role Phone Noemi NARAYAN, Rommel Chaudhry Primary Care Physician Problems Condition Condition Condition Status Onset Resolution Last Treating Co mments Source Name Details Category Date Date Treatment Clinician Date CKD CKD Disease Active 2017-10 [facility] (chronic (chronic 0-04 st kidney kidney 00:00: Hospita disease) disease) 00 l Nausea Nausea Disease Active 2017-10 [facility] 00[facility]osp[facility] 00 l Hiatal Hiatal Disease Active [facility] hernia [facility] l GERD GERD Disease Active [facility] (gastroeso (gastroeso st phageal phageal Hospita reflux reflux l disease) disease) Gastritis Gastritis Disease Active [facility] Dysphagia Dysphagia Disease Active [facility] Chronic Chronic Disease Active [facility] constipati constipati st on on Hospita l Allergies, Adverse Reactions, Alerts This patient has no known allergies or adverse reactions. Family History Family Member Diagnosis Comments Start Date Stop Date Source Natural father [facility] Natural mother [facility] Social History Social Habit Start Date Stop Date Quantity Comments Source Sexual orientation [facility] Gender identity [facility] History of Social 2019-05-23 2019-05-[address] function 00:00:00 00:00:00 Hospital Alcohol intake 2018-07-06 2018-07-06 Current Muslim 00:00:00 00:00:00 non-drinker of Hospital alcohol (finding) Tobacco use and 2018-06-07 2018-06-07 Smokeless Muslim exposure 00:00:00 00:00:00 tobacco non-user Hospital Sex Assigned At [birth year] Muslim 00:0000 00:00:00 Hospital Smoking Status Start Date Stop Date Source Never smoked tobacco [facility] Medications Ordered Filled Start Stop Current Ordering Indication Dosage Frequency Signature Comments Components Source Medication Medication Date Date Medication? Clinician (SIG) Name Name omeprazole 2017-10 Yes 40mg QD Take 1 Metho di (PriLOSEC) 2-[address] 40 MG 00:00: (40 mg Hospita capsule 00 total) by l mouth daily for 305 days. metoprolol 2017-10 Yes 50mg Q.5D Take 50 mg M [facility] tartrate 0-[address] (LOPRESSOR) 14:00: (two) Hospi ta 50 mg 23 times a l tablet day. hydrALAZINE 2017-10 Yes 10mg Q.5D Take 10 mg [facility] (APRESOLINE 0-[address] ) 10 MG 14:00: (two) Hospita tablet 23 times a l day. cholecalcif 2017-10 Yes 2000U QD Take 2,000 [facility] elizabeth, 0-[address] vitamin D3, 14:00: mouth Hospi ta (VITAMIN 23 daily. l D3) 2,000 unit capsule capsule amLODIPine 2017-10 Yes 5mg QD Take 5 mg Me [facility]odi (NORVASC) 5 0-[address] mg tablet 14:00: daily. Hospit a 23 l rosuvastati 2017-10 Yes 20mg QD Take 20 mg [facility] n (CRESTOR) 0-[address] 20 MG 14:00: daily. Hospita tablet 23 l estrogens, 2017-10 Yes 1.25mg QD Take 1.25 [facility] conjugated, 0-[address] (PREMARIN) 14:00: mouth Hospit a 1.25 MG 23 daily. l tablet ezetimibe 2017-10 Yes 10mg QD Take 10 mg Me [facility] (ZETIA) 10 0-[address] mg tablet 14:00: daily. Hospit a 23 l ALPRAZolam 2017-10 Yes .25mg QD Take 0.25 M ethodi (XANAX) 0-[address] 0.25 MG 14:00: mouth Hospita tablet 23 nightly. l cevimeline 2017-10 Yes 30mg Q.5D Take 30 mg M [facility]i (EVOXAC) 30 0-[address] mg capsule 14:00: (two) Hospit a 23 times a l day. levothyroxi 2017-10 Yes 25ug QD Take 25 Met hodi ne 0-[address] (SYNTHROID, 14:00: mouth Hospi ta LEVOXYL) 25 23 every l mcg tablet morning. fenofibrate Yes 48mg QD Take 48 mg [facility] (TRICOR) 48 9-[address] MG tablet 00:00: daily. Hospit a 00 l Procedures This patient has no known procedures. Plan of Care Planned Activity Planned Date Details Comments Source Future Scheduled 2023-01-05 COVID-19 VACCINE (#1) [facility] Test 03:29:30 [code = COVID-19 VACCINE (#1)] Future Scheduled 2023-01-05 SHINGLES VACCINES ([address] [facility] Test 03:29:30 of 2) [code = SHINGLES VACCINES (1 of 2)] Future Scheduled 2023-01-05 65+ PNEUMOCOCCAL [facility] Test 03:29:30 VACCINE (1 - PCV) [code = 65+ PNEUMOCOCCAL VACCINE (1 - PCV)] Future Scheduled 2023-01-05 INFLUENZA VACCINE [facility] Test 03:29:30 [code = INFLUENZA VACCINE] Results Test Description Test Time Test Comments Results Result Comments Source SARS-COV2/RT-PCR ([facility]) 2020-03-27 20:05:00 Test Item Value Reference Range Interpretation Comme nts SARS-COV2/RT-PCR (test code = 9641756) Not Detected Not Detected, N egative SARS-COV-2 PERFORMING LAB (test code = [id number]) Negative results do not preclude SARS-CoV-2 infection and should not be used as the sole basis for patient management decisions. Negative results must be combined with clinical observations, patient history, and epidemiological information. A false negative result may occur if a specimen is improperly collected, transported or handled.The limit of detection for this assay is 250 copies/mL.This SARS CoV-2 test is a rapid, real-time RT-PCR test intended for the qualitative detection of nucleic acid from SARS-CoV-2 in a nasopharyngeal swab specimen collected from individuals suspected of COVID-19 by their healthcare provider.This test has not been Food and Drug Administration (FDA) cleared or approved and has been authorized by FDA under an Emergency Use Authorization (EUA). This EUA will be effective until the declaration that circumstances exist justifying the authorization of the emergency use of in vitro diagnostic tests for detection and/or diagnosis of COVID-19 is terminated under Section 564(b)(2) of the Act or the EUA is revoked under Section 564(g) of the Act.Fact Sheet for Healthcare Pro viders:https://www.[employer]/Documents/Xpert%20Xpress%20SARS%20CoV-2/Fact%20Sh eets/3023802%73QRXL-CQS-9%20HEALTHCARE%20PROVIDERS%20FACT%20SHEET.pdfFact Sheet for Healthcare Patients:https://www.[employer]/Documents/Xpert%20Xpress%20SARS%20CoV-2/Fact%20Sheets/3023801%20SARS-COV -2%20PATIENT%20FACT%20SHEET.pdfPerforming Laboratory:[facility] [place] [address]
[2023-03-17] MEDS ORDERED: NA CHLORIDE 0.9% 1,000 ML ONE ×2 (13:19→13:26)
[2023-03-17 14:07] LABS: Absolute Lymphocytes (CBC) 0.5 K/uL (0.7-4.9); Hematocrit 37.5 % (36.0-45.0); MCV 94.6 fL (80-100); MPV 7.1 fL (7.6-11.3); RBC Red Blood Cell Count 3.96 M/uL (3.86-4.86)
[2023-03-17 14:15] LABS: Albumin 3.3 g/dL (3.4-5.0); Bilirubin Total 0.3 mg/dL (0.2-1.0); Potassium 4.1 mEq/L (3.5-5.1)
--- NOTE | 2023-03-17 14:37 | EDPHYS ---
Physician Documentation [facility] Name: Aliyah Flores Age: 87 yrs Sex: Female : 1935 Arrival Date: 03/17/2023 Time: 12:43 Bed 28 Private MD: ED Physician Siddharth Garnett HPI: 03/17 13:23 This 87 yrs old Female presents to ER via Wheelchair with complaints of bs3 POSSIBLE TB. 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 Historical: - Allergies: 13:06 Azithromycin; ll1 - PMHx: 13:06 COPD; ll1 - Immunization history:: Client reports receiving the 2nd dose of the Covid vaccine. - Social history:: Smoking status: Patient denies any tobacco usage or history of. ROS: 13:23 Constitutional: Negative for fever, chills bs3 13:23 All other systems are negative. Exam: 13:23 Constitutional: This is a well developed, she is thin, awake, alert, and in no acute bs3 distress. Head/Face: Normocephalic, atraumatic. Eyes: Pupils equal round and reactive to light, extra-ocular motions intact. Lids and lashes normal. ENT: mmm, no posterior phyarngeal erythema Neck: Trachea midline, no thyromegaly, no neck stiffness Chest/axilla: Normal chest wall appearance and motion. Nontender with no deformity. No lesions are appreciated. Cardiovascular: Tachycardic no murmur Respiratory: Lungs have equal breath sounds bilaterally, clear to auscultation, no respiratory distress Abdomen/GI: Soft, non-tender, no rebound or guarding Skin: Warm, dry with normal turgor. Normal color with no rashes, no lesions, and no evidence of cellulitis. MS/ Extremity: Pulses equal, no cyanosis. Neurovascular intact. Full, normal range of motion. Neuro: Awake and alert, GCS 15, oriented to person, place, time, and situation. Cranial nerves II-XII grossly intact. Motor strength 5/5 in all extremities. Sensory grossly intact. Vital Signs: 13:06 BP 117 / 69; Pulse 102; Resp 20; Temp 98; Pulse Ox 92% on R/A; Weight 38.56 kg; Height ll1 5 ft. 3 in. ; Pain 0/10; 13:50 BP 119 / 67; Pulse 97; Resp 18; Pulse Ox 100% on 2 lpm NC; nj1 14:31 BP 130 / 64; Pulse 97; Resp 18; Pulse Ox 100% on 2 lpm NC; nj1 13:06 Body Mass Index 15.06 (38.56 kg, 160.02 cm) ll1 13:06 Pain Scale: Adult ll1 MDM: 12:48 Patient medically screened. bs3 13:23 Differential Diagnosis Patient with generalized malaise in the setting of new diagnosis bs3 of tuberculosis she is actually fairly well-appearing will check basic electrolytes and hydrate and reassess and have a shared decision-making conversation with the patient. Data reviewed: vital signs, nurses notes. 14:36 ED course: Patient reassessed she is feeling much better her labs are notable for bs3 slight leukocytosis no signs of acute infection I discussed the case with the patient and she wants to go home I discussed with Dr. Geiger who will send TB medications to the pharmacy for the patient return precautions given. 03/17 12:59 Order name: CBC with Diff; Complete Time: 14:26 bs3 03/17 12:59 Order name: Comprehensive Metabolic Panel; Complete Time: 14:26 bs3 Administered Medications: 13:40 Drug: NS 0.9% IV 1000 ml Route: IV; Rate: 1000 ml; Site: left forearm; nj1 14:45 Follow up: Response: No adverse reaction; IV Status: Completed infusion; IV Intake: nj1 1000ml Disposition Summary: 03/17/23 14:37 Discharge Ordered Location: Home bs3 Problem: new bs3 Symptoms: have improved bs3 Condition: Stable bs3 Diagnosis - Weakness bs3 Followup: bs3 - With: Darren Redmond MD - When: 5 - 6 days - Reason: Re-evaluation by your physician Discharge Instructions: - Discharge Summary Sheet bs3 - Weakness bs3 Forms: - Medication Reconciliation Form bs3 - Thank You Letter bs3 - Antibiotic Education bs3 - Prescription Opioid Use bs3 Signatures: Dispatcher [employer] EDMS Rito, Lynsay, RN RN ll1 Siddharth Garnett MD MD bs3 Gely Kendall RN RN nj1
--- NOTE | 2023-03-17 14:37 | ER ---
Nurse's Notes [facility] Name: Aliyah Flores Age: 87 yrs Sex: Female : 1935 Arrival Date: 03/17/2023 Time: 12:43 Bed 28 Private MD: Diagnosis: Weakness Presentation: 03/17 13:06 Chief complaint: Patient states: Weakness, cough, and SOB with exertion. Had ll1 biopsy/testing done yesterday by Dr. Redmond, came up positive for TB. Coronavirus screen: Vaccine status: Patient reports receiving the 2nd dose of the covid vaccine. Client denies travel out of the [place] in the last 14 days. cough unrelated to allergies, difficulty breathing, shortness of breath, Client presents with at least one sign or symptom that may indicate coronavirus-19. Standard/surgical mask placed on the client. Ebola Screen: Patient denies travel to an Ebola-affected area in the 21 days before illness onset. Initial Sepsis Screen: Does the patient meet any 2 criteria? No. Patient's initial sepsis screen is negative. Does the patient have a suspected source of infection? Yes: Productive cough/pneumonia. Risk Assessment: Do you want to hurt yourself or someone else? Patient reports no desire to harm self or others. Onset of symptoms is unknown. 13:06 Method Of Arrival: Wheelchair ll1 13:06 Acuity: AG 2 ll1 Triage Assessment: 13:09 General: Appears uncomfortable, Behavior is calm, cooperative, appropriate for age. ll1 Pain: Denies pain. Neuro: Reports weakness. Respiratory: Reports shortness of breath cough that is. Historical: - Allergies: 13:06 Azithromycin; ll1 - PMHx: 13:06 COPD; ll1 - Immunization history:: Client reports receiving the 2nd dose of the Covid vaccine. - Social history:: Smoking status: Patient denies any tobacco usage or history of. Screenin:15 Tuberculosis screening: Intervention for positive screen: ED Physician notified, Pt had nj1 a lung biopsy done yesterday that was positive for TB.. 13:47 [facility] ED Fall Risk Assessment (Adult) History of falling in the last 3 months, nj1 including since admission No falls in past 3 months (0 pts) Confusion or Disorientation No (0 pts) Intoxicated or Sedated No (0 pts) Impaired Gait No (0 pts) Mobility Assist Device Used No (0 pt) Altered Elimination No (0 pt) Score/Fall Risk Level 0 - 2 = Low Risk Oriented to surroundings, Maintained a safe environment, Hourly rounding (assess needs \T\ fall precautionary measures) done. Abuse screen: Denies threats or abuse. Denies injuries from another. Nutritional screening: No deficits noted. Assessment: 13:45 Reassessment: Patient appears in no apparent distress at this time. Patient and/or nj1 family updated on plan of care and expected duration. Pain level reassessed. Patient is alert, oriented x 3, equal unlabored respirations, skin warm/dry/pink. Patient and patients visitor wondering what is next, this RN provides education on Plan of Care. Will continue monitoring and updates as appropriate.. 14:31 Reassessment: Patient appears in no apparent distress at this time. Patient and/or nj1 family updated on plan of care and expected duration. Pain level reassessed. Patient is alert, oriented x 3, equal unlabored respirations, skin warm/dry/pink. Patient denies pain at this time. 14:40 Reassessment: Ok to remove monitoring equipment, oxygen, IV access and discontinue UA nj1 per Dr Garnett. Vital Signs: 13:06 BP 117 / 69; Pulse 102; Resp 20; Temp 98; Pulse Ox 92% on R/A; Weight 38.56 kg; Height ll1 5 ft. 3 in. ; Pain 0/10; 13:50 BP 119 / 67; Pulse 97; Resp 18; Pulse Ox 100% on 2 lpm NC; nj1 14:31 BP 130 / 64; Pulse 97; Resp 18; Pulse Ox 100% on 2 lpm NC; nj1 13:06 Body Mass Index 15.06 (38.56 kg, 160.02 cm) ll1 13:06 Pain Scale: Adult ll1 ED Course: 12:47 Patient arrived in ED. im 12:48 Siddharth Garnett MD is Attending Physician. bs3 12:59 Arm band placed on Patient placed in an exam room, on a stretcher. ll1 13:09 Triage completed. ll1 13:15 Gely Kendall, RN is Primary Nurse. nj1 13:40 Inserted saline lock: 22 gauge in left forearm, using aseptic technique. Blood nj1 collected. Missed attempt(s): 22 gauge in right forearm. Bleeding controlled, band aid applied, catheter tip intact. 13:48 Patient has correct armband on for positive identification. Bed in low position. Call nj1 light in reach. Adult w/ patient. 14:36 Darren Redmond MD is Referral Physician. bs3 14:45 No provider procedures requiring assistance completed. nj1 14:45 IV discontinued, intact, bleeding controlled. nj1 Administered Medications: 13:40 Drug: NS 0.9% IV 1000 ml Route: IV; Rate: 1000 ml; Site: left forearm; nj1 14:45 Follow up: Response: No adverse reaction; IV Status: Completed infusion; IV Intake: nj1 1000ml Medication: 14:45 VIS not applicable for this client. nj1 Intake: 14:45 IV: 1000ml; Total: 1000ml. nj1 Outcome: 14:37 Discharge ordered by MD. bs3 14:45 Discharged to home via wheelchair, with family. nj1 14:45 Condition: stable nj1 14:45 Discharge instructions given to patient, significant other, Instructed on discharge instructions, follow up and referral plans. Demonstrated understanding of instructions, follow-up care. 14:45 Patient left the ED. nj1 Signatures: Javier Veras RN RN ll1 Siddharth Garnett MD MD bs3 Gely Kendall RN RN nj1 Chrissie Denny Corrections: (The following items were deleted from the chart) 15:02 14:40 Reassessment: Ok to remove monitoring equipment, oxygen and IV access per Dr nataliia Garnett. nj1 15:03 15:02 Patient left the ED. nj1 nj
[2023-03-17 15:17] VITALS: TEMP 98
[2023-03-17 15:27] VITALS: O2SAT 100
[2023-03-17 15:28] VITALS: BP 130/64
== END 2023-03-17 15:02 | disposition home or self-care (01) ==
LOC: ER 12:43
DX: R53.1 Weakness (principal); J44.9 Chronic obstructive pulmonary disease, unspecified; Z88.1 Allergy status to other antibiotic agents
CPT/HCPCS: 85025; 36415; 80053; 96360; 99284; J7030 ×2

== ENCOUNTER 2023-05-15 21:55 | Inpatient (IN) | payer OTHER ==
--- OUTSIDE RECORDS SUMMARY | 2023-05-15 21:58 | XMS REPORT | Continuity of Care Document ---
:1935 Author Organization [facility] t Address [address] [place] [address] Care Team Providers Name Role Phone Noemi [...] Start Date Stop Date Source Natural father [facility] Natural mother [facility] Social History Social Habit Start Date Stop Date Quantity Comments Source Sexual orientation [facility] Gender identity [facility] History of Social 2019-05-23 2019-05-[address] function 00:00:00 00:00:00 Hospital Alcohol intake 2018-07-06 2018-07-06 Current Nondenominational 00:00:00 00:00:00 non-drinker of Hospital alcohol (finding) Tobacco use and 2018-06-07 2018-06-07 Smokeless Nondenominational exposure 00:00:00 00:00:00 tobacco non-user Hospital Sex Assigned At [birth year] BAMBI Flores [facility]00 [facility] Smoking Status Start Date Stop Date Source Never smoked tobacco [facility] Medications Ordered Filled Start Stop Current Ordering Indication Dosage Frequency Signature Comments Components Source Medication Medication Date Date Medication? Clinician (SIG) Name Name omeprazole 2017-10 Yes 40mg QD Take 1 Metho di (PriLOSEC) 2-[address] 40 MG 00:00: (40 mg Hospita capsule 00 total) by l mouth daily for 305 days. omeprazole 2017-10 Yes 40mg QD Take 1 Metho di (PriLOSEC) 2-[address] 40 MG 00:00: (40 mg Hospita capsule 00 total) by l mouth daily for 305 days. cholecalcif 2017-10 Yes 2000U QD Take 2,000 [...] 25 23 every l mcg tablet morning. metoprolol 2017-10 Yes 50mg Q.5D Take 50 [...] 25 23 every l mcg tablet morning. metoprolol 2017-10 Yes 50mg Q.5D Take 50 mg M ethodi tartrate 0-[address] (LOPRESSOR) 14:00: (two) Hospi ta 50 mg 23 times a l tablet day. hydrALAZINE 2017-10 Yes 10mg Q.5D Take 10 mg [facility] (APRESOLINE 0-[address] ) 10 MG 14:00: (two) Hospita tablet 23 times a l day. fenofibrate Yes 48mg QD Take 48 mg [facility] (TRICOR) 48 9-[address] MG tablet 00:00: daily. Hospit a 00 l fenofibrate 2018-0 Yes 48mg QD Take 48 mg [facility] (TRICOR) 48 9-[address] MG tablet 00:00: daily. Hospit a 00 l Procedures This patient has no known procedures. Plan of Care Planned Activity Planned Date Details Comments Source Future Scheduled 2023-05-04 COVID-19 VACCINE (#1) [facility] Test 03:17:49 [code = COVID-19 VACCINE (#1)] Future Scheduled 2023-05-04 SHINGLES VACCINES (1 Met [facility] Test 03:17:49 of 2) [code = SHINGLES VACCINES (1 of 2)] Future Scheduled 2023-05-04 65+ [facility] VACCINE (1 - PCV) [code = 65+ PNEUMOCOCCAL VACCINE (1 - PCV)] Future Scheduled 2023-05-04 INFLUENZA VACCINE Method [facility] Test 03:17:49 [code = INFLUENZA VACCINE] Future Scheduled 2023-01-05 COVID-19 VACCINE (#1) [facility] Test 03:29:30 [code = COVID-19 VACCINE (#1)] Future Scheduled 2023-01-05 SHINGLES VACCINES (1 [facility] Test 03:29:30 of 2) [code = SHINGLES VACCINES (1 of 2)] Future Scheduled 2023-01-05 65+ [facility] 03:29[facility]30 VACCINE (1 - PCV) [code = 65+ PNEUMOCOCCAL VACCINE (1 - PCV)] Future Scheduled 2023-01-05 INFLUENZA VACCINE Method [facility] Test 03:29:30 [code = INFLUENZA VACCINE] Results Test Description Test Time Test Comments Results Result Comments Source SARS-COV2/RT-PCR ([facility]) 2020-03-27 20:05:00 Test Item Value Reference Range Interpretation Comme nts SARS-COV2/RT-PCR (test code = 2523511) Not Detected Not Detected, N egative SARS-COV-2 PERFORMING LAB (test code = [facility] 6749276) Negative results do not preclude SARS-CoV-2 infection [...] of the Act.Fact Sheet for Healthcare Pro viders:https://www.[employer]/Documents/Xpert%20Xpress%20SARS%20CoV-2/Fact%20Sh eets/302-6312%38MRGV-VII-0%20HEALTHCARE%20PROVIDERS%20FACT%20SHEET.pdfFact Sheet for Healthcare Patients:https://www.[employer]/Documents/Xpert%20Xpress%20SARS%20CoV-2/Fact%20Sheets/302-5641%20SARS-COV -2%20PATIENT%20FACT%20SHEET.pdfPerforming Laboratory:[facility] [place] [address]
[2023-05-15] MEDS ORDERED: MORPHINE 4 MG/ML SYR ONE (23:13)
[2023-05-15] MEDS ORDERED: ONDANSETRON 4 MG/2 ML VIAL ONE (23:13)
--- NOTE | 2023-05-16 00:08 | ER ---
Nurse's Notes [facility] Name: Aliyah Flores Age: 88 yrs Sex: Female : 1935 Arrival Date: 05/15/2023 Time: 21:55 Bed 18 Private MD: Diagnosis: Intertrochanteric right hip fracture Presentation: 05/15 22:43 Chief complaint: EMS states: fall from same level. pain to right hip and thigh. denies lg3 LOC. Coronavirus screen: Client denies travel out of the [place] in the last 14 days. At this time, the client does not indicate any symptoms associated with coronavirus-19. Ebola Screen: No symptoms or risks identified at this time. Initial Sepsis Screen: Does the patient meet any 2 criteria? No. Patient's initial sepsis screen is negative. Does the patient have a suspected source of infection? No. Patient's initial sepsis screen is negative. Risk Assessment: Do you want to hurt yourself or someone else? Patient reports no desire to harm self or others. Onset of symptoms was May 15, 2023. Care prior to arrival: IV initiated. 22 GA, in the left antecubital area, Oxygen administered. via nasal cannula. 22:43 Method Of Arrival: EMS: [facility] lg3 22:43 Acuity: AG 3 lg3 Triage Assessment: 22:47 General: Appears in no apparent distress. uncomfortable, Behavior is calm, cooperative. lg3 Pain: Complains of pain in right hip and right leg Pain currently is 7 out of 10 on a pain scale. Aggravated by repositioning, weight bearing, Noted to be guarding, resistant to movement. EENT: No deficits noted. No signs and/or symptoms were reported regarding the EENT system. Neuro: No deficits noted. [place] Agitation-Sedation Scale (RASS): 0 - Alert and Calm Level of Consciousness is awake, alert, obeys commands, Oriented to person, place, time, situation. Cardiovascular: No deficits noted. Denies chest pain, shortness of breath, Capillary refill < 3 seconds Clubbing of nail beds is absent JVD is absent Patient's skin is warm and dry. Respiratory: No deficits noted. Airway is patent Respiratory effort is even, unlabored, Respiratory pattern is regular, symmetrical, Denies shortness of breath. GI: No deficits noted. No signs and/or symptoms were reported involving the gastrointestinal system. Abdomen is flat, non-distended. : No deficits noted. No signs and/or symptoms were reported regarding the genitourinary system. Derm: Skin is intact, is fragile, is thin, Skin is dry, Skin is normal, Skin temperature is warm Wound noted abrasian noted to right elbow. Musculoskeletal: Circulation, motion, and sensation intact. Range of motion: limited in right hip shortening to right leg noted Reports pain in right hip and right leg. Historical: - Allergies: 22:47 Azithromycin; lg3 - Home Meds: 22:47 Linzess 145 mcg oral capsule daily [Active]; alprazolam 0.5 mg Oral tablet every day at lg3 bedtime [Active]; unknown stomach med [Active]; unknown HTN med [Active]; - PMHx: 22:47 COPD; Anxiety; insomnia; HTN; Breast Cancer; lg3 - PSHx: 22:47 Tonsillectomy; Total abdominal hysterectomy; Double mastectomy; breast implants; lg3 - Immunization history:: Adult Immunizations up to date, Client reports receiving the 2nd dose of the Covid vaccine. - Social history:: Smoking status: Patient denies any tobacco usage or history of. Patient/guardian denies using alcohol, street drugs. - Family history:: not pertinent. Screenin:53 [facility] ED Fall Risk Assessment (Adult) History of falling in the last 3 months, lg3 including since admission Yes- single mechanical fall (1 pt) Confusion or Disorientation No (0 pts) Intoxicated or Sedated No (0 pts) Impaired Gait Yes (1 pt) Mobility Assist Device Used Yes (1 pt) Altered Elimination No (0 pt) Score/Fall Risk Level 3 or more points = High Risk Oriented to surroundings, Maintained a safe environment, Educated pt \T\ family on fall prevention, incl call for assistance when getting out of bed, Assessed \T\ reinforced patient's understanding of fall precautions, Utilized family, sitter, or virtual agriculture technician as indicated. Abuse screen: Denies threats or abuse. Denies injuries from another. Nutritional screening: No deficits noted. Tuberculosis screening: No symptoms or risk factors identified. Assessment: 22:52 General: see triage assessment . lg3 23:48 Reassessment: Patient appears in no apparent distress at this time. No changes from lg3 previously documented assessment. Patient and/or family updated on plan of care and expected duration. Pain level reassessed. Patient is alert, oriented x 3, equal unlabored respirations, skin warm/dry/pink. Pain: Complains of pain in right leg and right hip Pain currently is 9 out of 10 on a pain scale. Vital Signs: 22:43 BP 135 / 69; Pulse 87; Resp 15 S; Temp 98.1(O); Pulse Ox 100% on 2 lpm NC; Weight 39.5 lg3 kg (M); Height 5 ft. 1 in. (R); Pain 7/10; 23:48 BP 140 / 73; Pulse 89; Resp 15 S; Pulse Ox 98% on 2 lpm NC; lg3 05/16 00:47 BP 143 / 77; Pulse 89; Resp 14 S; Pulse Ox 100% on 2 lpm NC; lg3 02:14 BP 127 / 74; Pulse 86; Resp 15 S; Pulse Ox 100% on 2 lpm NC; lg3 05/15 22:43 Body Mass Index 16.45 (39.50 kg, 154.94 cm) lg3 05/15 22:43 Pain Scale: Adult lg3 ED Course: 05/15 22:28 Patient arrived in ED. sb4 22:29 Rakan Quiroga MD is Attending Physician. rt 22:30 Venus [place], JOSE LUIS is Primary Nurse. lg3 22:47 Triage completed. lg3 22:47 Arm band placed on right wrist. lg3 22:53 Patient has correct armband on for positive identification. Placed in gown. Bed in low lg3 position. Call light in reach. Client placed on continuous cardiac and pulse oximetry monitoring. NIBP monitoring applied. school bus monitor on. Door closed. Noise minimized. Warm blanket given. Family accompanied patient. 22:53 Maintain EMS IV. Dressing intact. Good blood return noted. Site clean \T\ dry. Gauge \T\ lg 3 site: 22LAC. 23:01 Hip Right 2 View XRAY In Process Unspecified. EDMS 23:31 CT Head C Spine In Process Unspecified. EDMS 05/16 00:07 Molina Salas MD is Hospitalizing Provider. rt 00:30 Barton cath inserted, using sterile technique, 16 Fr., by me, balloon inflated, to lg3 gravity drainage, Patient tolerated well. 00:30 Ptt, Activated Sent. lg3 00:30 PT-INR Sent. lg3 00:30 CMP Sent. lg3 00:30 CBC with Diff Sent. lg3 00:36 Initial lab(s) drawn, by me, sent to lab. EKG done, by ED staff, reviewed by Rakan Quiroga MD. 00:45 Chest Single View XRAY In Process Unspecified. EDMS 03:03 No provider procedures requiring assistance completed. Patient admitted, IV remains in lg3 place. intact, No redness/swelling at site. Administered Medications: 05/15 23:48 Drug: morphine IVP or IV 4 mg Route: IVP; Infused Over: 4 mins; Site: left antecubital; 3 05/16 00:25 Follow up: Response: No adverse reaction; Marked relief of symptoms; Pain is decreased lg3 05/15 23:48 Drug: Ondansetron IVP 4 mg Route: IVP; Site: left antecubital; lg3 05/16 00:25 Follow up: Response: No adverse reaction lg3 02:18 Drug: morphine IVP or IV 2 mg Route: IVP; Infused Over: 4 mins; Site: left antecubital; lg3 02:18 Follow up: Response: No adverse reaction lg3 Medication: 03:04 VIS not applicable for this client. lg3 Outcome: 00:08 Decision to Hospitalize by Provider. rt 03:03 Admitted to Med/surg accompanied by tech, via stretcher, room 207, Report called to [facility] Eveline 03:03 Condition: stable 03:03 Instructed on the need for admit, Demonstrated understanding of instructions. 03:04 Patient left the ED. lg3 Signatures: Dispatcher [employer] EDAnna Akbar4 Venus [place], RN RN lg3 Delphine Love, PA-C PA-C Rakan Jackson MD MD rt
--- NOTE | 2023-05-16 00:08 | EDPHYS ---
Physician Documentation [facility] Name: Aliyah Flores Age: 88 yrs Sex: Female : 1935 Arrival Date: 05/15/2023 Time: 21:55 Bed 18 Private MD: ED Physician Rakan Quiroga HPI: 05/16 00:26 This 88 yrs old Female presents to ER via EMS with complaints of Fall, right hip pain. rt 00:26 Patient presents to the ED with mechanical fall. Patient states that she lost her rt balance, falling onto her left side. She states that she slightly hit her head but mostly has pain to the right hip. She states that she is not able to move it due to the pain. Denies loss of consciousness, other pain, other injuries. Symptoms are moderate severity, aching nature, nonradiating, no other aggravating or alleviating factors.. Historical: - Allergies: 05/15 22:47 Azithromycin; lg3 - Home Meds: 22:47 Linzess 145 mcg oral capsule daily [Active]; alprazolam 0.5 mg Oral tablet every day at lg3 bedtime [Active]; unknown stomach med [Active]; unknown HTN med [Active]; - PMHx: 22:47 COPD; Anxiety; insomnia; HTN; Breast Cancer; lg3 - PSHx: 22:47 Tonsillectomy; Total abdominal hysterectomy; Double mastectomy; breast implants; lg3 - Immunization history:: Adult Immunizations up to date, Client reports receiving the 2nd dose of the Covid vaccine. - Social history:: Smoking status: Patient denies any tobacco usage or history of. Patient/guardian denies using alcohol, street drugs. - Family history:: not pertinent. ROS: 05/16 00:26 Constitutional: Negative for fever, chills, and weight loss, Cardiovascular: Negative rt for chest pain, palpitations, and edema, Respiratory: Negative for shortness of breath, cough, wheezing, and pleuritic chest pain, Abdomen/GI: Negative for abdominal pain, nausea, vomiting, diarrhea, and constipation, Skin: Negative for injury, rash, and discoloration, Neuro: Negative for headache, weakness, numbness, tingling, and seizure, Psych: Negative for depression, anxiety, suicide ideation, homicidal ideation, and hallucinations. MS/extremity: Positive for injury or acute deformity, pain. Exam: 00:26 Constitutional: This is a well developed, well nourished patient who is awake, alert, rt and in no acute distress. Head/Face: Normocephalic, atraumatic. Neck: Trachea midline, no thyromegaly or masses palpated, and no cervical lymphadenopathy. Supple, full range of motion without nuchal rigidity, or vertebral point tenderness. No Meningismus. Chest/axilla: Normal chest wall appearance and motion. Nontender with no deformity. No lesions are appreciated. Cardiovascular: Regular rate and rhythm with a normal S1 and S2. No gallops, murmurs, or rubs. Normal PMI, no JVD. No pulse deficits. Respiratory: Lungs have equal breath sounds bilaterally, clear to auscultation and percussion. No rales, rhonchi or wheezes noted. No increased work of breathing, no retractions or nasal flaring. Abdomen/GI: Soft, non-tender, with normal bowel sounds. No distension or tympany. No guarding or rebound. No evidence of tenderness throughout. Skin: Warm, dry with normal turgor. Normal color with no rashes, no lesions, and no evidence of cellulitis. Neuro: Awake and alert, GCS 15, oriented to person, place, time, and situation. Cranial nerves II-XII grossly intact. Motor strength 5/5 in all extremities. Sensory grossly intact. Cerebellar exam normal. Normal gait. Psych: Awake, alert, with orientation to person, place and time. Behavior, mood, and affect are within normal limits. 00:26 Musculoskeletal/extremity: Right lower extremity is externally rotated, foreshortened, with pain, tenderness to the right hip region. Pulses, motor, sensation intact. 00:39 ECG was reviewed by the Attending Physician. rt Vital Signs: 05/15 22:43 BP 135 / 69; Pulse 87; Resp 15 S; Temp 98.1(O); Pulse Ox 100% on 2 lpm NC; Weight 39.5 lg3 kg (M); Height 5 ft. 1 in. (R); Pain 7/10; 23:48 BP 140 / 73; Pulse 89; Resp 15 S; Pulse Ox 98% on 2 lpm NC; lg3 05/16 00:47 BP 143 / 77; Pulse 89; Resp 14 S; Pulse Ox 100% on 2 lpm NC; lg3 02:14 BP 127 / 74; Pulse 86; Resp 15 S; Pulse Ox 100% on 2 lpm NC; lg3 05/15 22:43 Body Mass Index 16.45 (39.50 kg, 154.94 cm) lg3 05/15 22:43 Pain Scale: Adult lg3 MDM: 05/15 22:29 Patient medically screened. rt 05/16 00:28 Differential diagnosis: closed head injury, contusion, fracture. Data reviewed: vital rt signs, nurses notes, radiologic studies. Consideration of Admission/Observation Patient was admitted/placed on observation. Management of patient was discussed with the following: Construction Job Cost Estimator: Discussed with orthopedist on-call, requests admission to hospitalist, will operate on Tuesday.. I considered the following discharge prescriptions or medication management in the emergency department Medications were administered in the Emergency Department. See MAR. Independent interpretation of the following test(s) in the Emergency Department X-Ray: My interpretation is Right hip fracture seen on interpretation of the x-ray images. Care significantly affected by the following chronic conditions: Chronic Obstructive Pulmonary Disease. Counseling: I had a detailed discussion with the patient and/or guardian regarding: the historical points, exam findings, and any diagnostic results supporting the discharge/admit diagnosis, lab results, the need for further work-up and treatment in the hospital. Response to treatment: the patient's symptoms have markedly improved after treatment. 05/16 00:08 Order name: CBC with Diff; Complete Time: 01:53 rt 05/16 00:08 Order name: CMP; Complete Time: 01:53 rt 05/16 00:08 Order name: PT-INR; Complete Time: 01:53 rt 05/16 00:08 Order name: Ptt, Activated; Complete Time: 01:53 rt 05/16 01:33 Order name: Manual Differential; Complete Time: 01:53 EDMS 05/15 22:39 Order name: Hip Right 2 View XRAY rt 05/15 22:39 Order name: CT Head C Spine rt 05/16 00:09 Order name: Chest Single View XRAY rt 05/16 00:08 Order name: EKG; Complete Time: 00:09 rt 05/16 00:15 Order name: CONS Physician Consult EDMS 05/16 00:08 Order name: EKG - Nurse/Tech; Complete Time: 00:30 rt 08/14 00:29 Order name: Mick; Complete Time: 00:30 lg3 EC:39 Rate is 88 beats/min. Rhythm is regular, Normal Sinus Rhythm with No ectopy. QRS [place] rt is Normal. SD interval is normal. QRS interval is normal. QT interval is normal. No Q waves. Clinical impression: NSR w/ Non-specific ST/T Changes. Interpreted by me. Administered Medications: 05/15 23:48 Drug: morphine IVP or IV 4 mg Route: IVP; Infused Over: 4 mins; Site: left antecubital; lg3 05/16 00:25 Follow up: Response: No adverse reaction; Marked relief of symptoms; Pain is decreased lg3 05/15 23:48 Drug: Ondansetron IVP 4 mg Route: IVP; Site: left antecubital; lg3 05/16 00:25 Follow up: Response: No adverse reaction lg3 02:18 Drug: morphine IVP or IV 2 mg Route: IVP; Infused Over: 4 mins; Site: left antecubital; lg3 02:18 Follow up: Response: No adverse reaction lg3 Disposition Summary: 05/16/23 00:08 Hospitalization Ordered Hospitalization Status: Inpatient Admission rt Provider: Molina Salas rt Location: Telemetry/[facility] (Inpatient) rt Condition: Stable rt Problem: new rt Symptoms: are unchanged rt Bed/Room Type: Standard rt Room Assignment: 207(05/16/23 01:22) eb1 Diagnosis - Intertrochanteric right hip fracture rt Forms: - Medication Reconciliation Form rt - SBAR form rt - Leadership Thank You Letter rt Signatures: Dispatcher [employer] Montse Richey RN RN eb1 Venus Nelson RN RN lg3 Rakan Quiroga MD MD rt Corrections: (The following items were deleted from the chart) 01: 00:08 rt eb1
[2023-05-16 00:53] LABS: Absolute Lymphocytes (CBC) 0.8 K/uL (0.7-4.9); Hematocrit 29.8 % (36.0-45.0); Lymphocytes % 7.4 % (15.3-44.8); MCV 93.6 fL (80-100); MPV 6.9 fL (7.6-11.3); Platelets 277 thou/uL (152-406); RBC Red Blood Cell Count 3.18 M/uL (3.86-4.86)
[2023-05-16 00:55] LABS: Protime INR 1.01
[2023-05-16 01:15] LABS: Albumin 3.6 g/dL (3.4-5.0); Bilirubin Total 0.2 mg/dL (0.2-1.0); Potassium 4.1 mEq/L (3.5-5.1); Protein, Total 5.8 g/dL (6.4-8.2)
[2023-05-16 01:33] LABS: Blood Morphology Comment NOT SEEN (NOT SEEN); Platelet Estimate ADEQ
[2023-05-16] MEDS ORDERED: MORPHINE 2 MG/ML SYR ONE (02:27)
[2023-05-16] MEDS ORDERED: ALBUTEROL 2.5 MG/3 ML NEB SOL NEB PRN (02:30)
[2023-05-16 04:24] LABS: Specific Gravity 1.012 (1.005-1.030); Urine Bilirubin NEGATIVE (Negative); Urine Blood Negative (Negative); Urine Clarity Clear (Clear); Urine Color Light-Yellow (Yellow); Urine Glucose NEGATIVE (Negative); Urine Protein NEGATIVE (Negative); Urine Urobilinogen Normal (Normal)
[2023-05-16 05:59] VITALS: BMI 14.0
[2023-05-16] MEDS: MORPHINE 2 MG/ML SYR IV PRN ×4 (06:47→23:07)
[2023-05-16] MEDS ORDERED: ALPRAZOLAM 0.5 MG TABLET PO PRN (07:55)
[2023-05-16] MEDS: Linaclotide [Linzess] 145 MCG Capsule PO SCH (09:00)
[2023-05-16] MEDS: TRAMADOL HCL 50 MG TAB PO PRN (09:51)
[2023-05-16] MEDS: LEVOTHYROXINE SOD 0.025 MG TAB PO SCH (09:51)
--- NOTE | 2023-05-16 11:41 | RAD REPORT ---
EXAM DESCRIPTION: RAD - Femur Right - 05/16/2023 9:43 am CLINICAL HISTORY: r/o mass or trama COMPARISON: Hip Right 2 View dated 05/15/2023 TECHNIQUE: Right femur, 2 views. FINDINGS: Unchanged alignment of right femoral intertrochanteric fracture. There is no dislocation o r periosteal reaction noted. No acute or suspicious bony finding. IMPRESSION: Unchanged alignment of right femoral intertrochanteric fracture.
--- NOTE | 2023-05-16 13:10 | EKG ---
Test Date: 2023-05-16 Test Time: 00:28:28 Candy Depositing Machine Operator: MB MEASUREMENT RESULTS: Intervals: Rate: 88 WI: 152 QRSD: 62 QT: 400 QTc: 484 [place]: P: 55 WI: 152 QRS: 27 T: 72 INTERPRETIVE STATEMENTS: Normal sinus rhythm Septal infarct, age undetermined T wave abnormality, consider anterior ischemia Abnormal ECG Compared to ECG 03/27/2020 12:27:06 T-wave abnormality now present Possible ischemia now present Sinus tachycardia no longer present Fusion complex(es) no longer present Ventricular premature complex(es) no longer present Myocardial infarct finding still present Electronically Signed On 05-16-23 13:09:32 CDT by Efraín Flores
--- NOTE | 2023-05-16 13:35 | RAD REPORT ---
EXAM DESCRIPTION: RAD - Hip Right 2 View - 05/15/2023 11:00 pm CLINICAL HISTORY: The patient is 88 years old and is Female; PAIN TECHNIQUE: Two or three views of the right hip with pelvis when performed. COMPARISON: No relevant prior studies available. FINDINGS: BONES/JOINTS: The bones are osteopenic. A right intertrochanteric fracture is present. T he right SI joint and pubic symphysis are intact without evidence of diastases. No dislocation. SOFT TISSUES: Unremarkable. IMPRESSION: Right intertrochanteric fracture. Electronically signed by: Kylah Kent MD 05/15/2023 11:17 PM CDT Due to temporary technical issues with the PACS/Fluency reporting system, reports are being signed by the in house radiologist without review as a courtesy to ensure prompt reporting. The interpreting r adiologist is fully responsible for the content of the report.
--- NOTE | 2023-05-16 13:36 | RAD REPORT ---
EXAM DESCRIPTION: CT - Head C Spine Mpr Wo Con - 05/16/2023 6:56 am CLINICAL HISTORY: The patient is 88 years old and is Female; TRAUMA TECHNIQUE: Axial computed tomography images of the head/brain and cervical spine without intravenous contrast. Sagittal and coronal reformatted images were created and reviewed. This CT exam was pe rformed using one or more of the following dose reduction techniques: automated exposure control, a djustment of the mA and/or kV according to patient size, and/or use of iterative reconstruction techn ique. COMPARISON: No relevant prior studies available. FINDINGS: BRAIN: There is diffuse cerebral atrophy present, consistent with this patient's age. There is patchy hypoattenuation of the deep white matter which is non-specific, but most likely owing to chronic small vessel ischemic change in a patient of this age group. No intracranial hemorrhage , mass effect, midline shift is seen. There are no extra-axial fluid collections. VENTRICLES: Unremarkable. No ventriculomegaly. SKULL: No acute fracture. SINUSES: Unremarkable as visualized. No acute sinusitis. MASTOID AIR CELLS: Unremarkable as visualized. No mastoid effusion. VERTEBRAE: Mild reversal of the normal cervical curvature is present. Vertebral body heights an d alignment are maintained. There is no acute fracture. DISCS/SPINAL CANAL/NEURAL FORAMINA: There is multi-level intervertebral disc height loss. There a re disc-osteophyte complexes at several levels, with associated mild spinal canal narrowing. There is also facet hypertrophy and uncovertebral joint osteophytosis, with associated multilevel neural fora shivam narrowing. SOFT TISSUES: The soft tissues are normal. VASCULATURE: Atherosclerosis of the vasculature is present. LUNG APICES: Unremarkable as visualized. IMPRESSION: 1. Mild reversal of the normal cervical curvature is present. Findings may be second sang to patient position versus muscle spasm. 2. No acute intracranial findings. Electronically signed by: Kylah Kent MD 05/15/2023 11:47 PM CDT Due to temporary technical issues with the PACS/Fluency reporting system, reports are being signed by the in house radiologist without review as a courtesy to ensure prompt reporting. The interpreting r adiologist is fully responsible for the content of the report.
--- NOTE | 2023-05-16 13:38 | RAD REPORT ---
EXAM DESCRIPTION: RAD - Chest Single View - 05/16/2023 12:43 am CLINICAL HISTORY: 88 years Female, pre op COMPARISON: Previous CT chest report on 03/07/2023. This study was not available for review at this ti me TECHNIQUE: Single portable x-ray view of the chest performed on 05/16/2023 at 12:38 AM FINDINGS: The lungs are hyperinflated. There is an opacity projecting along the superolateral aspect of the right hemithorax which may be due to an acute or chronic infectious or inflammatory process. There may be adjacent opacification in the right lung apex. No additional focal abnormal areas of inc reased or decreased attenuation are seen. There are overlying partially calcified breast implants. Th ere is no evidence of a pneumothorax. The cardiac silhouette is normal in size and configuration. The mediastinal contours are normal. No acute osseous abnormality is identified. No acute soft tissue abnormalities are seen. Lines and tubes: None. Free air: None IMPRESSION: 1. Opacity projecting along the superolateral aspect of the right hemithorax which may be due to an acute or chronic infectious or inflammatory process. There may be adjacent opacificatio n in the right lung apex. Correlation with the prior chest x-ray and chest CT is recommended if avail able. 2. Hyperinflation of the lungs. 3. No additional focal areas of increased or decreased attenuation are seen. Electronically signed by: Ericka Loredo DO 05/16/2023 1:01 AM CDT Due to temporary technical issues with the PACS/Fluency reporting system, reports are being signed by the in house radiologist without review as a courtesy to ensure prompt reporting. The interpreting r adiologist is fully responsible for the content of the report.
--- NOTE | 2023-05-16 17:29 | P.HP ---
Certification for Inpatient Patient admitted to: Inpatient With expected LOS: >2 Midnights Practitioner: I am a practitioner with admitting privileges, knowledge of patient current condition, hospital course, and medical plan of care. Services: Services provided to patient in accordance with Admission requirements found in Title 42 Section 412.3 of the Code of Federal Regulations Patient History Date of Service: 05/16/23 Reason for admission: RIGHT HIP FRACTURE History of Present Illness: DARREN AT HOME TRIPPED AND BROKE R HIP. SHE HAS LUDIN IN LUNGS THAT IS TRATED BY DR. ALVARADO. I WAS CALLED BY DR STEEL THAT SHE WILL NEED IV MERREM. I WILL HET HIM KNOW TO START IT WHILE SHE IS HERE. Allergies azithromycin [From Zithromax] Allergy (Verified 03/15/23 09:02) unknown Steroids Adverse Reaction (Uncoded 03/15/23 09:02) "Anxious, Shaking" Home medications list reviewed: Yes Home Medications: Levothyroxine Sodium 25 mcg PO DAILY 02/28/20 ALPRAZolam [Xanax] 0.5 mg PO BEDTIME PRN 03/15/23 Linaclotide [Linzess] 145 mcg PO DAILY 03/15/23 Tramadol HCl [Ultram] 50 mg PO Q12H PRN 05/16/23 - Past Medical/Surgical History Has patient received pneumonia vaccine in the past: Yes Diabetic: No -: Breast CA -: melanoma -: HTN -: Hysterectomy -: Mastectomy (bilateral) -: Breast Implant - Family History Father -: Heart disease, Diabetes Mother -: Other (see notes) Notes: Ulcer - Social History Smoking Status: Never smoker Alcohol use: No CD- Drugs: No Caffeine use: Yes Place of Residence: Home Review of Systems 10-point ROS is otherwise unremarkable General: Weakness Respiratory: As per HPI Physical Examination - Vital Signs Temperature: 97.5 F Blood Pressure: 115/54 Pulse: 83 Respirations: 17 Pulse Ox (%): 96 - Physical Exam General: Oriented x3, Cooperative, Cachectic, Mild distress HEENT: Atraumatic, PERRLA, Mucous membr. moist/pink, EOMI, Sclerae nonicteric Neck: Supple, 2+ carotid pulse no bruit, No LAD, Without JVD or thyroid abnormality Respiratory: Clear to auscultation bilaterally, Normal air movement Cardiovascular: Regular rate/rhythm, Normal S1 S2 Gastrointestinal: Normal bowel sounds, No tenderness Musculoskeletal: No tenderness Integumentary: No rashes Neurological: Normal gait, Normal speech, Normal strength at 5/5 x4 extr, Normal tone, Normal affect Lymphatics: No axilla or inguinal lymphadenopathy - Studies Laboratory Data (last 24 hrs) 05/16/23 05/16/23 05/16/23 00:36 00:36 00:36 WBC 11.10 H Hgb 10.1 L Hct 29.8 L Plt Count 277 PT 11.1 INR 1.01 APTT 31.0 Sodium 134 L Potassium 4.1 BUN 21 H Creatinine 0.71 Glucose 160 H Total Bilirubin 0.2 AST 13 L ALT 23 Alkaline Phosphatase 62 Assessment and Plan - Problems (Diagnosis) (1) Closed right hip fracture Current Visit: Yes Status: Acute Plan: SHE WILL HAVE SURGERY IN AM. SHE IS MEDICALLY CLEARED WITH MODERATE RISK SECONDARY TO POOR GENERAL CONDITION. NOT ANYTHING WE CAN TO DO TO IMPROVE THIS RISK SHE HAS HAD NO ACUTE CORONARY SYMPTOMS. FOLLOWING IS HER HISTORY HTN (hypertension) [I10 (401.9)] 2019 History of hypothyroidism [Z86.39 (V12.29)] 2019 Dyspnea [R06.00 (786.09)] NORMAL BNP, D DIMER. NORMAL BNP, D DIMER. 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 FU SCAN ADVISED. 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 GREER HAS SEEN HER. DR. GREER HAS SEEN HER. 2019 Esophageal stenosis [K22.2 (530.3)] 2020 History of melanoma [Z85.820 (V10.82)] 2020 Temporal arteritis [M31.6 (446.5) 0.4] 2020 Protein calorie malnutrition [E46 (263.9) 0.5] 2020 CKD (chronic kidney disease) stage 3, GFR 30-59 ml/min [N18.30 (585.3) 0.07] 2021 Apical myocardial infarction [I21.29 (410.80) 0.2] small on st test. small on st test. 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 SHE DOES NOT HAVE TB HAS BE[facility] AF[facility] POSITIVE HAS MAC. 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 (3) COPD (chronic obstructive pulmonary disease) Current Visit: No Status: Chronic Plan: MODERATE AND WITH POOR PROGNOSIS. - Advance Directives Does patient have a Living Will: Yes Does patient have a Durable POA for Healthcare: Yes
[2023-05-16] MEDS: ENSURE SURGERY 237 ML CAN PO SCH (21:00)
[2023-05-17] MEDS: LEVOTHYROXINE SOD 0.025 MG TAB PO SCH (06:30)
--- NOTE | 2023-05-17 08:06 | CON ---
Date of Consultation: 05/16/2023 History Of Present Illness: I have seen this patient in the past, however, quite a long time ago for different problems in the clinic. Unfortunately, she states she fell injuring her right lower extre mity. She was seen in the emergency department where she was ruled out for other injuries; however, she was unable to ambulate and x-rays taken of her hip demonstrated a slightly displaced intertrochan teric fracture of the right hip. All of her long bones and joints are palpated without pain or crepi tation with the exception of her right hip. Assessment: Right hip intertrochanteric fracture. I will speak with her primary care physician who is Dr. Salas about any need for medical clearance. I have also spoke with the patient about risks, b enefits, and alternatives of different methods of treating this and we will most likely plan for clos ed reduction with intramedullary anselmo fixation tomorrow. All of her questions were otherwise answered and I have instructed nursing n.p.o. after midnight. We will also get an x-ray of her femur to ensu re that she does not have any more distal problems or lesions. All of her questions were answered to day. /ANA Voice ID: [id number] Report ID: [id number]
[2023-05-17] MEDS ORDERED: Mupirocin NASAL 2 APPL/1 GM TUBE NAS SCH (09:00)
[2023-05-17] MEDS: Linaclotide [Linzess] 145 MCG Capsule PO SCH (09:00)
[2023-05-17] MEDS: ENSURE SURGERY 237 ML CAN PO SCH ×3 (09:00→20:24)
[2023-05-17] MEDS: MORPHINE 2 MG/ML SYR IV PRN (10:23)
[2023-05-17] MEDS ORDERED: FENTANYL CITR 100 MCG/2 ML ONE (11:16)
[2023-05-17] MEDS ORDERED: dexAMETHasone 10 MG/ML VIAL ONE (11:16)
[2023-05-17] MEDS ORDERED: ONDANSETRON 4 MG/2 ML VIAL ONE (11:16)
[2023-05-17] MEDS ORDERED: LIDOCAINE 2% MPF 5 ML VIAL ONE (11:16)
[2023-05-17] MEDS ORDERED: propofoL 200 MG/20 ML VIAL IV ONE ×2 (11:16→13:47)
[2023-05-17] MEDS ORDERED: EPINEPHRINE/PF 1 MG/ML AMP ONE (11:17)
[2023-05-17] MEDS ORDERED: BUPIVACAINE 0.25% PF 10 ML VIAL ONE (11:17)
[2023-05-17] MEDS ORDERED: Ringers Lactate 1,000 ML IV ONE (12:17)
[2023-05-17] MEDS ORDERED: TRANEXAMIC ACID 1,000 MG/10 ML VIAL IV ONE (12:47)
[2023-05-17] MEDS ORDERED: CEFAZOLIN SODIUM 1 GM/VIAL ONE (13:05)
[2023-05-17] MEDS ORDERED: NS 0.9% VIAL 10 ML ONE ×2 (13:05→13:06)
--- NOTE | 2023-05-17 13:05 | P.CNS ---
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 treated with triple therapy for tuberculosis ended up here in the hospital with a fracture of the right hip according to the patient has been improving chest congestion and shortness of breath have all improved chest x-ray shows also an improvement Allergies azithromycin [From Zithromax] Allergy (Verified 03/15/23 09:02) unknown Steroids Adverse Reaction (Uncoded 03/15/23 09:02) "Anxious, Shaking" Home Medications: Levothyroxine Sodium 25 mcg PO DAILY 02/28/20 ALPRAZolam [Xanax] 0.5 mg PO BEDTIME PRN 03/15/23 Linaclotide [Linzess] 145 mcg PO DAILY 03/15/23 Tramadol HCl [Ultram] 50 mg PO Q12H PRN 05/16/23 - Past Medical/Surgical History Diabetic: No -: Breast CA -: melanoma -: HTN -: Mycobacterium abscessus -: Hysterectomy -: Mastectomy (bilateral) -: Breast Implant - Family History Father Medical History: Heart disease, Diabetes Mother Medical History: Other (see notes) Notes: Ulcer - Social History Smoking Status: Never smoker Alcohol use: No CD- Drugs: No Caffeine use: Yes Place of Residence: Home Review of Systems General: Weakness Respiratory: Shortness of Breath Musculoskeletal: Other (Right hip pain) Neurological: Weakness Physical Examination Temp Pulse Resp BP Pulse Ox 97.8 F 95 H 16 141/63 H 96 05/17/23 08:00 05/17/23 08:00 05/17/23 10:53 05/17/23 08:00 05/17/23 10:53 General: Alert, Mild distress HEENT: Atraumatic Neck: Supple Respiratory: Clear to auscultation bilaterally, Diminished Cardiovascular: No edema, Regular rate/rhythm, Normal S1 S2 Gastrointestinal: Normal bowel sounds, Soft and benign - Problems (1) Mycobacterium abscessus infection Current Visit: Yes Status: Acute Plan: Patient is 88 years of age with a history of Mycobacterium abscessus infection initially treated for possible tuberculosis cultures just recently came back yesterday confirming Mycobacterium abscessus no evidence of TB x-ray does show an improvement in fibrocavitary changes patient feels better went at the bedside confirms this patient was treated with moxifloxacin rifabutin I think ethambutol will have to confirmed with the TB department patient has improved we will plan to withhold treatment for now meant is usually with triple therapy intensive phase for 2 to 3 months currently requires 1-2 parenteral agents +2-3 oral agents at least 3 drugs will be a combination of imipenem macrolide possibly low-dose in the line Nasalide patient was denied varicase newly treated for 12 months optimal regimen has not been defined azithromycin is the preferred agent unless the isolate is macrolide resistant I also consider nebulized amikacin 150 mg per mill diluted with 3 mils of saline via jet nebulizer twice a day labs reviewed white count is mildly elevated
--- NOTE | 2023-05-17 14:03 | P.BOP ---
Preoperative diagnosis: right IT fracture Postoperative diagnosis: same Primary procedure: right ALBERT anselmo Estimated blood loss: 50 ccs Anesthesia: General Transferred to: Recovery Room Condition: Good
[2023-05-17] MEDS: MEPERIDINE HCL 25 MG/ML SYR ONE ×2 (14:29→14:30)
[2023-05-17] MEDS ORDERED: MORPHINE 4 MG/ML SYR ONE (14:55)
[2023-05-17] MEDS: MORPHINE 4 MG/ML SYR ONE ×2 (15:05→15:15)
--- NOTE | 2023-05-17 15:20 | RAD REPORT ---
EXAM DESCRIPTION: - Hip in OR Right 2 View - 05/17/2023 2:06 pm CLINICAL HISTORY: RIGHT HIP- FEM SHARONA/NAIL COMPARISON: None available. FINDINGS: Twenty-one Images were sent to PACS, documenting hardware positions during right femoral i nternal fixation procedure. No radiologist was available for the procedure, nor will any image interp retation he provided. Please refer to the procedural report for additional details. Fluoroscopy time: 1.0 Minutes. IMPRESSION: Documentation of fluoroscopy utilization as above.
--- NOTE | 2023-05-17 17:20 | OP ---
Date of Procedure: 05/17/2023 Surgeon: Rosalio Braun MD Preoperative Diagnosis: Right displaced intertrochanteric fracture. Postoperative Diagnosis: Right displaced intertrochanteric fracture. Procedure: Right closed reduction, intramedullary fixation of intertrochanteric femur fracture. Estimated Blood Loss: 50 cc. Complications: There were no complications. Pathology Specimens: No pathology specimens sent. Indication For Operation: The patient an 88-year-old female, who unfortunately fell injuring her rig ht hip. She was seen and examined in the emergency department where she was ruled out for other inju irma; however, x-rays demonstrated displaced intertrochanteric fracture. She was seen by me clara atkinson and this appears to be an isolated hip injury and x-rays do reveal a displaced right intertrochante brown fracture. Risks, benefits, and alternatives of different methods of treating this were discussed with the family and with the patient and all her family's questions have been answered, and the tye ent agrees to proceed. Description Of Procedure: The patient was taken to the operating room. General anesthesia was obtai ciera by the Anesthesia staff. Following this, she was then carefully positioned on the fracture table , which allows for padding of the bony prominences and appropriate position of her lower extremities. C-arm was brought in and reduction was obtained. After this, the right hip was then prepped and dr aped in the usual sterile fashion for the procedure. A small incision was made above the greater tro chanter and was taken down carefully, and the greater trochanter was palpated. A starting awl was th en used and the guide pin was placed without difficulty down the femur. After this, the entry reamer was then used to the level of the greater trochanter. The anselmo was then selected and then placed to appropriate depth. The cephalomedullary screw was placed in standard fashion being careful for place ment using C-arm and biplanar radiography. After this, a derotation screw was then placed an interlocking screw was placed distally. The wounds were irrigated and the fascia was closed in a watertight fashion using heavy Vicryl sutures followed by closure of skin with Vicryl followed by st aples. The patient was then placed in Aquacel dressing. Anesthesia is going to perform a block and there were no complications. SE/MODL Voice ID: [id number] Report ID: [id number]
[2023-05-17 21:19] VITALS: O2SAT 95
--- NOTE | 2023-05-17 21:29 | P.PN ---
Subjective Date of Service: 05/17/23 Chief Complaint: RIGHT HIP FRACTURE Subjective: Improving DARREN HAD SURGERY DONE FOR R HIP REPLACEMENT BY DR BANDA. SHE DID WELL WITH SURGERY. SHE HAS NO ACUTE SYMPTOMS. Review of Systems 10-point ROS is otherwise unremarkable General: Weakness Physical Examination - Vital Signs Temperature: 98.0 F Blood Pressure: 119/62 Pulse: 106 Respirations: 16 Pulse Ox (%): 99 - Physical Exam General: Oriented x3, Cachectic, Mild distress HEENT: Atraumatic, PERRLA, EOMI Neck: Supple, JVD not distended Respiratory: Clear to auscultation bilaterally, Normal air movement Cardiovascular: Regular rate/rhythm, Normal S1 S2 Gastrointestinal: Normal bowel sounds, No tenderness Musculoskeletal: No tenderness Integumentary: No rashes Neurological: Normal speech, Normal tone, Normal affect Lymphatics: No axilla or inguinal lymphadenopathy - Studies Medications List Reviewed: Yes Assessment And Plan - Current Problems (Diagnosis) (1) Closed right hip fracture Current Visit: Yes Status: Acute Plan: SHE WILL HAVE SURGERY IN AM. SHE IS MEDICALLY CLEARED WITH MODERATE RISK SECONDARY TO POOR GENERAL CONDITION. NOT ANYTHING WE CAN TO DO TO IMPROVE THIS RISK SHE HAS HAD NO ACUTE CORONARY SYMPTOMS. FOLLOWING IS HER HISTORY HTN (hypertension) [I10 (401.9)] 2019 History of hypothyroidism [Z86.39 (V12.29)] 2019 Dyspnea [R06.00 (786.09)] NORMAL BNP, D DIMER. NORMAL BNP, D DIMER. 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 FU SCAN ADVISED. 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 GREER HAS SEEN HER. DR. GREER HAS SEEN HER. 2019 Esophageal stenosis [K22.2 (530.3)] 2020 History of melanoma [Z85.820 (V10.82)] 2020 Temporal arteritis [M31.6 (446.5) 0.4] 2020 Protein calorie malnutrition [E46 (263.9) 0.5] 2020 CKD (chronic kidney disease) stage 3, GFR 30-59 ml/min [N18.30 (585.3) 0.07] 2021 Apical myocardial infarction [I21.29 (410.80) 0.2] small on st test. small on st test. 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 SHE DOES NOT HAVE TB HAS BEEN TO [facility] AFB POSITIVE HAS MAC. 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 DR BRIONES SAYS THE CXR HAS IMPROVED AND HE WILL WAIT FORNOW AND AVOID IV ABX . (3) COPD (chronic obstructive pulmonary disease) Current Visit: No Status: Chronic Plan: MODERATE AND WITH POOR PROGNOSIS.
[2023-05-18] MEDS: LEVOTHYROXINE SOD 0.025 MG TAB PO SCH (05:04)
[2023-05-18] MEDS: MORPHINE 2 MG/ML SYR IV PRN (05:14)
[2023-05-18] MEDS: ENSURE SURGERY 237 ML CAN PO SCH ×3 (09:00→21:00)
[2023-05-18] MEDS: Linaclotide [Linzess] 145 MCG Capsule PO SCH (09:30)
[2023-05-18] MEDS ORDERED: NS 0.9% IH SCH (12:30)
[2023-05-18] MEDS ORDERED: AMIKACIN IH SCH (12:30)
--- NOTE | 2023-05-18 12:45 | P.PN ---
Subjective Date of Service: 05/18/23 Chief Complaint: RIGHT HIP FRACTURE Subjective: No new changes DARREN HAD SURGERY DONE FOR R HIP REPLACEMENT BY DR BANDA. SHE DID WELL WITH SURGERY. SHE IS CONFUSED FROM PAIN MEDS. NOT ABLE TO COOPERATE FOR PT YET. Review of Systems 10-point ROS is otherwise unremarkable General: Weakness Physical Examination - Vital Signs Temperature: 98.5 F Blood Pressure: 144/76 Pulse: 109 Respirations: 16 Pulse Ox (%): 96 - Physical Exam General: Oriented x1, Cachectic, Mild distress Neck: Supple Respiratory: Diminished Cardiovascular: Normal S1 S2, No gallops - Studies Medications List Reviewed: Yes Assessment And Plan - Current Problems (Diagnosis) (1) Closed right hip fracture Current Visit: Yes Status: Acute Plan: SHE WILL HAVE SURGERY IN AM. SHE IS MEDICALLY CLEARED WITH MODERATE RISK SECONDARY TO POOR GENERAL CONDITION. NOT ANYTHING WE CAN TO DO TO IMPROVE THIS RISK SHE HAS HAD NO ACUTE CORONARY SYMPTOMS. FOLLOWING IS HER HISTORY HTN (hypertension) [I10 (401.9)] 2019 History of hypothyroidism [Z86.39 (V12.29)] 2019 Dyspnea [R06.00 (786.09)] NORMAL BNP, D DIMER. NORMAL BNP, D DIMER. 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 FU SCAN ADVISED. 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 GREER HAS SEEN HER. DR. GREER HAS SEEN HER. 2019 Esophageal stenosis [K22.2 (530.3)] 2020 History of melanoma [Z85.820 (V10.82)] 2020 Temporal arteritis [M31.6 (446.5) 0.4] 1 Protein calorie malnutrition [E46 (263.9) 0.5] 2020 CKD (chronic kidney disease) stage 3, GFR 30-59 ml/min [N18.30 (585.3) 0.07] 2021 Apical myocardial infarction [I21.29 (410.80) 0.2] small on st test. small on st test. 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 SHE DOES NOT HAVE TB HAS BEEN TO [facility] AND COUNTS INCLUDE [facility] BEDS AT THE [facility] AFB POSITIVE HAS MAC. 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 DR BRIONES SAYS THE CXR HAS IMPROVED AND HE WILL WAIT FORNOW AND AVOID IV ABX . (3) COPD (chronic obstructive pulmonary disease) Current Visit: No Status: Chronic Plan: MODERATE AND WITH POOR PROGNOSIS.
[2023-05-18] MEDS: AMIKACIN IH SCH ×2 (13:35→21:20)
[2023-05-18] MEDS: TRAMADOL HCL 50 MG TAB PO PRN (13:35)
[2023-05-18] MEDS: NS IH SCH ×2 (13:35→21:20)
[2023-05-18] MEDS ORDERED: ALBUTEROL 2.5 MG/3 ML NEB SOL NEB PRN (15:00)
[2023-05-19] MEDS: TRAMADOL HCL 50 MG TAB PO PRN ×2 (00:46→12:38)
[2023-05-19] MEDS: LEVOTHYROXINE SOD 0.025 MG TAB PO SCH (05:55)
[2023-05-19] MEDS: ENOXAPARIN 30 MG/0.3 ML SQ SCH (08:11)
[2023-05-19] MEDS: Linaclotide [Linzess] 145 MCG Capsule PO SCH (08:12)
[2023-05-19] MEDS: ENSURE SURGERY 237 ML CAN PO SCH ×3 (08:13→21:00)
--- NOTE | 2023-05-19 08:39 | P.PN ---
Subjective Date of Service: 05/19/23 Chief Complaint: Altered mental status And is alert and responsive responding to commands post repair of her right hip fracture Review of Systems is unable to be obtained Physical Examination - Vital Signs Temperature: 97.5 F Blood Pressure: 122/74 Pulse: 95 Respirations: 18 Pulse Ox (%): 96 - Physical Exam General: Alert, Unresponsive Respiratory: Clear to auscultation bilaterally Cardiovascular: Regular rate/rhythm - Studies Medications List Reviewed: Yes Assessment And Plan - Current Problems (Diagnosis) (1) Mycobacterium abscessus infection Current Visit: Yes Status: Acute Plan: Patient was started on nebulized amikacin continue with present treatment (2) Altered mental status Current Visit: Yes Status: Acute Plan: This happened postoperatively she is alert and responsive delirium after the operation and the effect of narcotics MRI has been ordered also added some thiamine Qualifiers: Altered mental status type: delirium Qualified Code(s): R41.0 - Disorientation, unspecified
[2023-05-19] MEDS: AMIKACIN IH SCH ×2 (08:45→20:00)
[2023-05-19] MEDS: NS IH SCH ×2 (08:45→20:00)
[2023-05-19] MEDS: THIAMINE 200 MG/2 ML INJ IVP SCH ×2 (10:09→20:29)
--- NOTE | 2023-05-19 16:22 | RAD REPORT ---
EXAM DESCRIPTION: MRI - Brain Wo Cont - 05/19/2023 3:57 pm CLINICAL HISTORY: r/o stroke, AMS COMPARISON: Brain Wo Cont dated 08/14/2020; MRI BRAIN WITHOUT CONTRAST dated 11/19/2015 TECHNIQUE: Sagittal T1-weighted images were obtained along with PD/heavily T2-weighted and T2-FLAIR images. Axial DWI and ADC mapping sequences were also obtained along with coronal heavily T2-weighted images were obtained. FINDINGS: No intracranial hemorrhage, mass or acute infarction. There is no edema or shift of midlin e structures. No extra-axial fluid collections. Signal voids are seen as a normal finding in the meño r intracranial vessels. Mild chronic small vessel ischemic changes. Mastoid air cells and paranasal sinuses are clear. IMPRESSION: No acute intracranial abnormality. Specifically, no evidence of acute infarct. Mild documentation designer tab small vessel ischemic changes.
--- NOTE | 2023-05-19 18:20 | P.PN ---
Subjective Date of Service: 05/19/23 Chief Complaint: WEAK, CONFUSED, NOT TALKING MUCH,NOT EATING MUCH Subjective: No new changes DARREN HAD SURGERY DONE FOR R HIP REPLACEMENT BY DR BANDA. SHE DID WELL WITH SURGERY. SHE IS CONFUSED FROM PAIN MEDS. NOT ABLE TO COOPERATE FOR PT YET. DARREN IS NOT COMMUNICATING WELL. SHE NODS, SHE SMILES BUT NOT FOLLOWING COMMAND WELL. I ORDERED MRI. SON CALLED AND I TALKED TO SON AND . BOTH ARE AGREEABLE THAT SHE HAS OVERALL POOR PROGNOSIS. CALLED AGAIN AND I CALLED HIM AT 6:20 PM TO EXPLAIN THAT MRI IS OKAY BUT PROGNOSIS IS STILL POOR SHE IS VERY CACHECTIC AND HAS OTHER CHRONIC ISSUES. HE UNDERSTANDS. IS USUALLY NOT ABLE TO COPE WITH ANYTHING SERIOUS. SON IS PLANNING FOR NH WITH HOSPICE OR HOME WITH HOSPICE. IF SHE RECOVERS WE WILL REMOVE HOSPICE. SHE IS TOO WEAK AND TOO CONFUSED TO PARTICIPATE IN THERAPY. Review of Systems 10-point ROS is otherwise unremarkable General: Weakness, Malaise Physical Examination - Vital Signs Temperature: 97.5 F Blood Pressure: 125/63 Pulse: 113 Respirations: 18 Pulse Ox (%): 97 - Physical Exam General: Cachectic, Mild distress, Confused HEENT: Atraumatic, PERRLA, EOMI Neck: Supple, JVD not distended Respiratory: Clear to auscultation bilaterally, Normal air movement Cardiovascular: Regular rate/rhythm, Normal S1 S2 Gastrointestinal: Normal bowel sounds, No tenderness Musculoskeletal: No tenderness Integumentary: No rashes Neurological: Abnormal speech (NOT ABLE TO COMMUNICATE, TALKS BUT NOT MAKING SENSE. ), Abnormal strength (GEN WEAK. ) Lymphatics: No axilla or inguinal lymphadenopathy - Studies Medications List Reviewed: Yes Assessment And Plan - Current Problems (Diagnosis) (1) Closed right hip fracture Current Visit: Yes Status: Acute Plan: SHE WILL HAVE SURGERY IN AM. SHE IS MEDICALLY CLEARED WITH MODERATE RISK SECONDARY TO POOR GENERAL CONDITION. NOT ANYTHING WE CAN TO DO TO IMPROVE THIS RISK SHE HAS HAD NO ACUTE CORONARY SYMPTOMS. FOLLOWING IS HER HISTORY HTN (hypertension) [I10 (401.9)] 2019 History of hypothyroidism [Z86.39 (V12.29)] 2019 Dyspnea [R06.00 (786.09)] NORMAL BNP, D DIMER. NORMAL BNP, D DIMER. 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 FU SCAN ADVISED. 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 GREER HAS SEEN HER. DR. GREER HAS SEEN HER. 2018 Esophageal stenosis [K22.2 (530.3)] 2019 History of melanoma [Z85.820 (V10.82)] 2019 Temporal arteritis [M31.6 (446.5) 0.4] 2020 Protein calorie malnutrition [E46 (263.9) 0.5] 2020 CKD (chronic kidney disease) stage 3, GFR 30-59 ml/min [N18.30 (585.3) 0.07] 2021 Apical myocardial infarction [I21.29 (410.80) 0.2] small on st test. small on st test. 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 SHE DOES NOT HAVE TB HAS BEEN [facility] [employer] POSITIVE HAS MAC. 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 DR BRIONES SAYS THE CXR HAS IMPROVED AND HE WILL WAIT FORNOW AND AVOID IV ABX . (3) COPD (chronic obstructive pulmonary disease) Current Visit: No Status: Chronic Plan: MODERATE AND WITH POOR PROGNOSIS. (4) Altered mental status Current Visit: Yes Status: Acute Plan: MRI SHOWS NO STROKE MAINLY GEN DECONDITIONING IS HAMPERING HER MENTAL STATUS ALSO. AGREE WITH PLANS WITH FAMILY. Qualifiers: Altered mental status type: delirium Qualified Code(s): R41.0 - Disorientation, unspecified
[2023-05-20] MEDS: TRAMADOL HCL 50 MG TAB PO PRN ×2 (00:40→13:52)
[2023-05-20] MEDS: ENOXAPARIN 30 MG/0.3 ML SQ SCH (07:52)
[2023-05-20] MEDS: LEVOTHYROXINE SOD 0.025 MG TAB PO SCH (07:52)
[2023-05-20] MEDS: Linaclotide [Linzess] 145 MCG Capsule PO SCH (07:52)
[2023-05-20] MEDS: THIAMINE 200 MG/2 ML INJ IVP SCH ×2 (07:52→20:08)
[2023-05-20] MEDS: ENSURE SURGERY 237 ML CAN PO SCH ×3 (07:54→20:04)
[2023-05-20] MEDS: AMIKACIN IH SCH ×2 (08:10→20:20)
[2023-05-20] MEDS: NS IH SCH ×2 (08:10→20:20)
--- NOTE | 2023-05-20 11:13 | P.PN ---
Subjective Date of Service: 05/20/23 Chief Complaint: WEAK, CONFUSED, NOT TALKING MUCH,NOT EATING MUCH Subjective: Worsening DARREN HAD SURGERY DONE FOR R HIP REPLACEMENT BY DR BANDA. SHE DID WELL WITH SURGERY. SHE IS CONFUSED FROM PAIN MEDS. NOT ABLE TO COOPERATE FOR PT YET. DARREN IS NOT COMMUNICATING WELL. SHE NODS, SHE SMILES BUT NOT FOLLOWING COMMAND WELL. I ORDERED MRI. SON CALLED AND I TALKED TO SON AND . BOTH ARE AGREEABLE THAT SHE HAS OVERALL POOR PROGNOSIS. CALLED AGAIN AND I CALLED HIM AT 6:20 PM TO EXPLAIN THAT MRI IS OKAY BUT PROGNOSIS IS STILL POOR SHE IS VERY CACHECTIC AND HAS OTHER CHRONIC ISSUES. HE UNDERSTANDS. IS USUALLY NOT ABLE TO COPE WITH ANYTHING SERIOUS. SON IS PLANNING FOR NH WITH HOSPICE OR HOME WITH HOSPICE. IF SHE RECOVERS WE WILL REMOVE HOSPICE. SHE IS TOO WEAK AND TOO CONFUSED TO PARTICIPATE IN THERAPY. I HAD TALKED TO SON AND YESTERDAY AND TODAY. IT SEEMED IF THEY WERE READY FOR HOSPICE YESTERDAY BUT IS ANXIOUS ABOUT EVERYTHING AND MAY NOT HAVE ENOUGH HELP Bud DUVALL. HE WANTS TO BRING HER HOME AND NOT NH THEY HAD A PACT. Physical Examination - Vital Signs Temperature: 98.4 F Blood Pressure: 154/70 Pulse: 105 Respirations: 14 Pulse Ox (%): 97 - Physical Exam General: Oriented x1, Cachectic, Mild distress, Confused Cardiovascular: Normal S1 S2 Musculoskeletal: Other Rectal: Normal - Studies Medications List Reviewed: Yes Assessment And Plan - Current Problems (Diagnosis) (1) Closed right hip fracture Current Visit: Yes Status: Acute Plan: SHE WILL HAVE SURGERY IN AM. SHE IS MEDICALLY CLEARED WITH MODERATE RISK SECONDARY TO POOR GENERAL CONDITION. NOT ANYTHING WE CAN TO DO TO IMPROVE THIS RISK SHE HAS HAD NO ACUTE CORONARY SYMPTOMS. FOLLOWING IS HER HISTORY HTN (hypertension) [I10 (401.9)] 2019 History of hypothyroidism [Z86.39 (V12.29)] 2019 Dyspnea [R06.00 (786.09)] NORMAL BNP, D DIMER. NORMAL BNP, D DIMER. 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 FU SCAN ADVISED. 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 GREER HAS SEEN HER. DR. GREER HAS SEEN HER. 2018 Esophageal stenosis [K22.2 (530.3)] 2019 History of melanoma [Z85.820 (V10.82)] 2019 Temporal arteritis [M31.6 (446.5) 0.4] 2020 Protein calorie malnutrition [E46 (263.9) 0.5] 2020 CKD (chronic kidney disease) stage 3, GFR 30-59 ml/min [N18.30 (585.3) 0.07] 2021 Apical myocardial infarction [I21.29 (410.80) 0.2] small on st test. small on st test. 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 SHE DOES NOT HAVE TB HAS BE[facility] [employer] POSITIVE HAS MAC. 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 DR BRIONES SAYS THE CXR HAS IMPROVED AND HE WILL WAIT FORNOW AND AVOID IV ABX . (3) COPD (chronic obstructive pulmonary disease) Current Visit: No Status: Chronic Plan: MODERATE AND WITH POOR PROGNOSIS. STABLE BUT HAS POOR PROGNOSIS HOME WITH HOSPICE. (4) Altered mental status Current Visit: Yes Status: Acute Plan: MRI SHOWS NO STROKE MAINLY GEN DECONDITIONING IS HAMPERING HER MENTAL STATUS ALSO. AGREE WITH PLANS WITH FAMILY. Qualifiers: Altered mental status type: delirium Qualified Code(s): R41.0 - Disorienta tion, unspecified
[2023-05-21] MEDS: LEVOTHYROXINE SOD 0.025 MG TAB PO SCH (06:07)
--- NOTE | 2023-05-21 06:53 | P.PN ---
Date of Service: 05/21/23 Subjective: Feeling a little better today Mentation improving, more talkative /alert today per family - feel she is close to baseline now appetite improving no acute events overnight ROS: 10 point ROS as noted above, otherwise negative Physical Exam: GEN: Oriented x2, Cachectic, NAD HEENT: Normal conjunctiva, sclera anicteric CV: Regular rate and rhythm, no edema Pulm: Non-labored respirations on room air, clear bilaterally ABD: Soft, nontender, nondistended MSK: Dressing in place c/d/i on R thigh vitals reviewed Problem List: Closed right hip fracture now s/p R hip replacement (05/17) Acute delirium h/o MAC infection COPD, chronic Hypothyroidism Anxiety Closed right hip fracture now s/p R hip replacement (05/17) xray hip (05/16): Right intertrochanteric fracture. s/p R hip replacement (05/17) by Dr. Braun PRN pain medication Continue PT family looking at SNF on discharge Acute delirium CT head (05/15): Mild reversal of the normal cervical curvature is present. Findings may be secondary to patient position versus muscle spasm. No acute intracranial findings Brain MRI (05/19): no evidence of acute infarct. Mild chronic small vessel ischemic changes noted to be confused post surgery - likely from anesthesia, pain meds / +general deconditioning per family continue thiamine mentation improving MAC infection COPD, chronic CXR (05/16): Opacity along the superolateral aspect of R hemithorax - acute vs chronic infection or inflammatory process. There may be adjacent opacification in the right lung apex Pulm - Dr. Redmond consulted continue Amikacin (05/18-) holding IV abx per pulm given improvement PRN nebs Hypothyroidism. Continue synthroid Anxiety. PRN xanax at bedtime VTE: Lovenox Code: DNR Dispo: [facility] - [place] - Pending approval ss/cm consulted
[2023-05-21] MEDS: AMIKACIN IH SCH ×2 (08:00→20:30)
[2023-05-21] MEDS: NS IH SCH ×2 (08:00→20:30)
[2023-05-21] MEDS: THIAMINE 200 MG/2 ML INJ IVP SCH ×2 (08:54→21:03)
[2023-05-21] MEDS: TRAMADOL HCL 50 MG TAB PO PRN ×2 (08:56→21:03)
[2023-05-21] MEDS: Linaclotide [Linzess] 145 MCG Capsule PO SCH (08:57)
[2023-05-21] MEDS: ENOXAPARIN 30 MG/0.3 ML SQ SCH (08:57)
[2023-05-21] MEDS: ENSURE SURGERY 237 ML CAN PO SCH ×3 (09:00→21:00)
[2023-05-22] MEDS: LEVOTHYROXINE SOD 0.025 MG TAB PO SCH (05:54)
--- NOTE | 2023-05-22 07:21 | P.PN ---
Date of Service: 05/22/23 Subjective: Feeling better today working on sitting/standing transfers with PT, max assist no acute events overnight Forgetful at times ROS: 10 point ROS as noted above, otherwise negative Physical Exam: GEN: Oriented x2, Cachectic, NAD, pleasant HEENT: Normal conjunctiva, sclera anicteric CV: Regular rate and rhythm, no edema Pulm: Non-labored respirations on room air, clear bilaterally ABD: Soft, nontender, nondistended MSK: Dressing in place c/d/i on R thigh, no hematoma on palpation Barton in place vitals reviewed Problem List: Closed right hip fracture now s/p R hip replacement (05/17) Acute delirium h/o MAC infection COPD, chronic Hypothyroidism Anxiety Closed right hip fracture now s/p R hip replacement (05/17) xray hip (05/16): Right intertrochanteric fracture. s/p R hip replacement (05/17) by Dr. Braun PRN pain medication Continue PT family planning for SNF on discharge Acute delirium CT head (05/15): Mild reversal of the normal cervical curvature is present. Findings may be secondary to patient position versus muscle spasm. No acute intracranial findings Brain MRI (05/19): no evidence of acute infarct. Mild chronic small vessel ischemic changes noted to be confused post surgery - likely from anesthesia, pain meds / +general deconditioning per family continue thiamine mentation improving MAC infection COPD, chronic CXR (05/16): Opacity along the superolateral aspect of R hemithorax - acute vs chronic infection or inflammatory process. There may be adjacent opacification in the right lung apex Pulm - Dr. Redmond consulted continue Amikacin (05/18-) holding IV abx per pulm given improvement PRN nebs Hypothyroidism. Continue synthroid Anxiety. PRN xanax at bedtime VTE: Lovenox Code: DNR Dispo: SNF - [place] - Pending approval ss/cm consulted
[2023-05-22] MEDS: ENSURE SURGERY 237 ML CAN PO SCH ×3 (09:00→21:00)
[2023-05-22] MEDS: Linaclotide [Linzess] 145 MCG Capsule PO SCH (09:37)
[2023-05-22] MEDS: THIAMINE 200 MG/2 ML INJ IVP SCH ×2 (09:37→21:24)
[2023-05-22] MEDS: TRAMADOL HCL 50 MG TAB PO PRN ×2 (09:37→21:24)
[2023-05-22] MEDS: ENOXAPARIN 30 MG/0.3 ML SQ SCH (09:38)
[2023-05-22] MEDS: AMIKACIN IH SCH ×2 (10:00→20:10)
[2023-05-22] MEDS: NS IH SCH ×2 (10:00→20:10)
[2023-05-23] MEDS: LEVOTHYROXINE SOD 0.025 MG TAB PO SCH (06:30)
[2023-05-23] MEDS: AMIKACIN IH SCH (08:00)
[2023-05-23] MEDS: NS IH SCH (08:00)
[2023-05-23] MEDS: ENSURE SURGERY 237 ML CAN PO SCH ×2 (09:00→13:43)
[2023-05-23] MEDS: Linaclotide [Linzess] 145 MCG Capsule PO SCH (09:53)
[2023-05-23] MEDS: TRAMADOL HCL 50 MG TAB PO PRN (09:53)
[2023-05-23] MEDS: ENOXAPARIN 30 MG/0.3 ML SQ SCH (09:53)
[2023-05-23] MEDS: THIAMINE 200 MG/2 ML INJ IVP SCH (09:54)
[2023-05-23 16:53] VITALS: BP 133/67; TEMP 97.3
--- NOTE | 2023-05-23 17:56 | P.DS ---
Admission Date: 05/16/23 Discharge Date: 05/23/23 Disposition: TRANSFER TO SNF - MEDICAL Discharge Condition: FAIR Reason for Admission: WEAK, CONFUSED, NOT TALKING MUCH,NOT EATING MUCH - Problems (1) Closed right hip fracture Current Visit: Yes Status: Acute (2) History of MAC infection Current Visit: Yes Status: Chronic (3) COPD (chronic obstructive pulmonary disease) Current Visit: No Status: Chronic (4) Altered mental status Current Visit: Yes Status: Acute Qualifiers: Altered mental status type: delirium Qualified Code(s): R41.0 - Disorientation, unspecified Brief History of Present Illness: DARREN AT HOME TRIPPED AND BROKE R HIP. SHE HAS LUDIN IN LUNGS THAT IS TRATED BY DR. ALVARADO. I WAS CALLED BY DR STEEL THAT SHE WILL NEED IV MERREM. I WILL HET HIM KNOW TO START IT WHILE SHE IS HERE. Hospital Course: DARREN IS FRAIL, WEAK, COPD PATIENT WITH MAA INFECTION OF LUNGS. SHE COMES WITH HIP FRACTURE. AFTER REPAIR SHE REMAINED VERY CONFUSED FOR TWO DAYS AND THEN SLOWLY WOKE UP. SHE WOULD BE A GOOD HOSPICE CANDIDATE BUT FAMILY WANTED SNIF SO SHE IS GOING TO SNIF FOR A WHILE. Vital Signs/Physical Exam: Temp Pulse Resp BP Pulse Ox 97.3 F 93 H 17 133/67 98 05/23/23 16:00 05/23/23 16:00 05/23/23 16:00 05/23/23 16:00 05/23/23 16:00 Laboratory Data at Discharge: WBC 11.10 thou/uL (4.3-10.9) H 05/16/23 00:36 Hgb 10.1 g/dL (12.0-15.0) L 05/16/23 00:36 Hct 29.8 % (36.0-45.0) L 05/16/23 00:36 Plt Count 277 thou/uL (152-406) 05/16/23 00:36 PT 11.1 SECONDS (9.5-12.5) 05/16/23 00:36 INR 1.01 05/16/23 00:36 APTT 31.0 SECONDS (24.3-36.9) 05/16/23 00:36 Sodium 134 mEq/L (136-145) L 05/16/23 00:36 Potassium 4.1 mEq/L (3.5-5.1) 05/16/23 00:36 BUN 21 mg/dL (7-18) H 05/16/23 00:36 Creatinine 0.71 mg/dL (0.55-1.02) 05/16/23 00:36 Glucose 160 mg/dL (74-106) H 05/16/23 00:36 Total Bilirubin 0.2 mg/dL (0.2-1.0) 05/16/23 00:36 AST 13 U/L (15-37) L 05/16/23 00:36 ALT 23 U/L (13-56) 05/16/23 00:36 Alkaline Phosphatase 62 U/L (45-117) 05/16/23 00:36 Home Medications: Levothyroxine Sodium 25 mcg PO DAILY 02/28/20 ALPRAZolam [Xanax*] 0.5 mg PO BEDTIME PRN 03/15/23 Linaclotide [Linzess] 145 mcg PO DAILY 03/15/23 Tramadol HCl [Ultram] 50 mg PO Q12H PRN 05/16/23 Albuterol Neb [Proventil 0.083% Neb Soln] 2.5 mg NEB [id number] PRN amp 05/23/23 Followup: Darren Redmond MD [ACTIVE - CAN ADMIT] - Molina Salas MD [Primary Care Provider] -
== END 2023-05-23 18:32 | DRG 480 ==
LOC: ER 21:55 → ERHOLD 05-16 01:02 → 2ND 05-16 02:22
PROVIDERS: ADMIT Internal Medicine; ATTEND Internal Medicine
PROC: 0QS636Z Reposition Right Upper Femur with Intramedullary Internal Fixation Device, Percutaneous Approach (ICD-10-PCS; principal; 2023-05-17 13:15)
DX: S72.141A Displaced intertrochanteric fracture of right femur, initial encounter for closed fracture (principal); E43 Unspecified severe protein-calorie malnutrition; G92.8 Other toxic encephalopathy; Z68.1 Body mass index [BMI] 19.9 or less, adult; R64 Cachexia; A31.8 Other mycobacterial infections; F05 Delirium due to known physiological condition; E03.9 Hypothyroidism, unspecified; I10 Essential (primary) hypertension; F41.9 Anxiety disorder, unspecified; L89.152 Pressure ulcer of sacral region, stage 2; T41.45XA Adverse effect of unspecified anesthetic, initial encounter; J44.9 Chronic obstructive pulmonary disease, unspecified; Z66 Do not resuscitate; Z88.1 Allergy status to other antibiotic agents; Z85.3 Personal history of malignant neoplasm of breast; Z90.13 Acquired absence of bilateral breasts and nipples; Z79.01 Long term (current) use of anticoagulants; Z98.86 Personal history of breast implant removal; Z79.890 Hormone replacement therapy; Z90.710 Acquired absence of both cervix and uterus; Z79.899 Other long term (current) drug therapy; W01.0XXA Fall on same level from slipping, tripping and stumbling without subsequent striking against object, initial encounter; Y92.019 Unspecified place in single-family (private) house as the place of occurrence of the external cause; Y93.9 Activity, unspecified; Y99.9 Unspecified external cause status
CPT/HCPCS: 36415; 51702; 70450; 70551; 71045; 72125; 80053; 81003; 85025; 85610; 85730; 93005; 94640; 96374; 96375; 97110; 97161; 97530; 99285; A4216; J0171; J0690; J1100; J1650; J2001; J2175; J2270; J2405; J2704; J3010; J3411; J7120

== ENCOUNTER 2023-08-29 14:11 | Inpatient (IN) | payer OTHER ==
--- OUTSIDE RECORDS SUMMARY | 2023-08-29 14:17 | XMS REPORT | Continuity of Care Document ---
:1935 Author Organization [facility] t Address [address] [place] [address] Care Team Providers Name Role Phone Rommel Franklin MD Primary Care Physician [email or web address] Attending Clinician Unavailable [email or web address] Admitting Clinician Unavailable Problems Condition Condition Condition Status Onset Resolution [...] Start Date Stop Date Source Natural father [facility] Natural mother [facility] Social History Social Habit Start Date Stop Date Quantity Comments Source Gender identity [facility] Sexual orientation [facility] History of Social 2019-05-23 2019-05-[address] function 00:00:00 00:00:00 Hospital Alcohol intake 2018-07-06 2018-07-06 Current [employer] 00:00:00 00:00:00 non-drinker of Hospital alcohol (finding) Tobacco use and 2018-06-07 2018-06-07 Smokeless [employer] exposure 00:00:00 00:00:00 tobacco non-user Hospital Sex Assigned At [birth year] BAMBI Flores 00:00:00 [facility]:00 [facility] Smoking Status Start Date Stop Date Source Never smoked tobacco [facility] Medications Ordered Filled Start Stop [...] 00:00: daily. Hospit a 00 l fenofibrate Yes 48mg QD Take 48 mg [facility] ([facility]) 48 9-[address] MG tablet 00:00: daily. Hospit a 00 l fenofibrate Yes 48mg QD Take 48 mg [facility] ([facility]) 48 9-[address] MG tablet 00:00: daily. Hospit a 00 l Procedures This patient has no known procedures. Plan of Care Planned Activity Planned Date Details Comments Source Future Scheduled 2023-08-29 COVID-19 VACCINE (#1) [facility] Test 14:16:18 [code = COVID-19 VACCINE (#1)] Future Scheduled 2023-08-29 SHINGLES VACCINES (1 Met [facility] Test 14:16:18 of 2) [code = SHINGLES VACCINES (1 of 2)] Future Scheduled 2023-08-29 65+ PNEUMOCOCCAL [facility] Test 14:16:18 VACCINE (1 - PCV) [code = 65+ PNEUMOCOCCAL VACCINE (1 - PCV)] Future Scheduled 2023-08-29 INFLUENZA VACCINE (#1) [facility] Test 14:16:18 [code = INFLUENZA VACCINE (#1)] Future Scheduled 2023-05-04 COVID-19 VACCINE (#1) [facility] Test 03:17:49 [code = COVID-19 VACCINE (#1)] Future Scheduled 2023-05-04 SHINGLES VACCINES (1 Met [facility] Test 03:17:49 of 2) [code = SHINGLES VACCINES (1 of 2)] Future Scheduled 2023-05-04 65+ [facility] 03:17:[facility] VACCINE (1 - PCV) [code = 65+ PNEUMOCOCCAL VACCINE (1 - PCV)] Future Scheduled 2023-05-04 INFLUENZA VACCINE Method [facility] Test 03:17:49 [code = INFLUENZA VACCINE] Future Scheduled 2023-01-05 COVID-19 VACCINE (#1) Me [facility] Test 03:29:30 [code = COVID-19 VACCINE (#1)] Future Scheduled 2023-01-05 SHINGLES VACCINES (1 Met [facility] Test 03:29:30 of 2) [code = SHINGLES VACCINES (1 of 2)] Future Scheduled 2023-01-05 65+ [facility] 03:29:30 VACCINE (1 - PCV) [code = 65+ PNEUMOCOCCAL VACCINE (1 - PCV)] Future Scheduled 2023-01-05 INFLUENZA VACCINE Method [facility] Test 03:29:30 [code = INFLUENZA VACCINE] Encounters Start End Encounter Admission Attending Care Care Encounter Source Date/Time Date/Time Type Type Clinicians Facility Department ID 2023-07-30 2023-07-30 Outpatient [email or web address] PRIV PRIV [id number] [facility] 00:00:00 00:00:00 diyala_S [id number] Medic al Results Test Description Test Time Test Comments Results Result Comments Source SARS-COV2/RT-PCR ([facility]) 2020-03-27 20:05:00 Test Item Value Reference Range Interpretation Comme nts SARS-COV2/RT-PCR (test code = 0840795) Not Detected Not Detected, N egative SARS-COV-2 PERFORMING LAB ([facility] Negative results do not preclude SARS-CoV-2 infection [...] of the Act.Fact Sheet for Healthcare Pro viders:https://www.[employer]/Documents/Xpert%20Xpress%20SARS%20CoV-2/Fact%20Sh eets/3023802%39XBFN-KFZ-3%20HEALTHCARE%20PROVIDERS%20FACT%20SHEET.pdfFact Sheet for Healthcare Patients:https://www.[employer]/Documents/Xpert%20Xpress%20SARS%20CoV-2/Fact%20Sheets/3023801%20SARS-COV -2%20PATIENT%20FACT%20SHEET.pdfPerforming Laboratory:[facility] [place] [address]
[2023-08-29 14:55] LABS: Absolute Lymphocytes (CBC) 0.8 K/uL (0.7-4.9); Hematocrit 30.5 % (36.0-45.0); Lymphocytes % 5.4 % (15.3-44.8); MCV 94.1 fL (80-100); MPV 6.6 fL (7.6-11.3); Platelets 601 thou/uL (152-406); RBC Red Blood Cell Count 3.24 M/uL (3.86-4.86)
--- NOTE | 2023-08-29 14:59 | RAD REPORT ---
EXAM DESCRIPTION: CT - Head Brain Wo Cont - 08/29/2023 2:30 pm CLINICAL HISTORY: ams COMPARISON: HEAD BRAIN W O CONTRAST dated 10/31/2014 TECHNIQUE: Noncontrast head CT images were obtained without IV contrast. Multiplanar reformats were generated and reviewed. All CT scans are performed using dose optimization technique as appropriate and may include automated exposure control or mA/KV adjustment according to patient size. FINDINGS: No intracranial hemorrhage, mass, or edema. Midline structures are unremarkable. Moderate diffuse parenchymal volume loss. No hydrocephalus. Angulo-white matter differentiation is preserved, without evidence of acute infarct. No abnormal extra- axial fluid collections. Mastoid air cells and visualized portions of the paranasal sinuses are clear. No acute bony findings. IMPRESSION: No evidence of an acute intracranial process.
--- NOTE | 2023-08-29 15:12 | RAD REPORT ---
EXAM DESCRIPTION: RADChest Single View08/29/2023 3:05 pm CLINICAL HISTORY: ams COMPARISON: Chest Pa And Lat (2 Views) dated 08/09/2023; Chest Single View dated 05/16/2023; Chest Pa And Lat (2 Views) dated 05/04/2023; Chest Single View dated 03/16/2023 TECHNIQUE: Portable AP view of the chest. FINDINGS: Worsening left basilar patchy airspace opacities. There may be a new small focus of opacif ication in the left upper to mid lung. Other scattered airspace opacities are stable. No pneumothora x or effusion. The cardiomediastinal contours are unremarkable. IMPRESSION: Worsening airspace opacities on the left, concerning for worsening pneumonia.
[2023-08-29 15:34] LABS: AST/SGOT 11 U/L (15-37); Albumin 2.5 g/dL (3.4-5.0); Alkaline Phosphatase 75 U/L (45-117); BUN Blood Urea Nitrogen 19 mg/dL (7-18); Bicarbonate 26 mEq/L (21-32); Bilirubin Total 0.2 mg/dL (0.2-1.0); Creatine Phosphokinase 46 U/L (26-192); Glomerular Filtration Rate 70 ml/min (=/>90); Glucose Level 108 mg/dL (74-106); Magnesium 2.1 mg/dL (1.6-2.4); Potassium 3.7 mEq/L (3.5-5.1); Protein, Total 6.8 g/dL (6.4-8.2); Sodium Level 141 mEq/L (136-145); Troponin High Sensitivity 9.2 pg/mL (<58.9)
[2023-08-29 15:35] LABS: ALT/SGPT < 10 U/L (13-56); Bilirubin Direct < 0.1 mg/dL (0-0.2); Bilirubin Indirect, Calculated ND mg/dL (0.2-0.8)
[2023-08-29] MEDS ORDERED: CEFTRIAXONE 2000 MG/VIAL ONE (16:33)
[2023-08-29] MEDS ORDERED: WATER FOR INJ,STERILE 10 ML ONE (16:34)
[2023-08-29] MEDS ORDERED: ZIPRASIDONE MESYLA 20 MG/VIAL IM ONE (16:34)
[2023-08-29] MEDS ORDERED: NA CHLORIDE 0.9% 100 ML ONE (16:34)
[2023-08-29 18:37] LABS: Urine Bilirubin Negative (Negative); Urine Blood Trace-intact (Negative); Urine Clarity Turbid (Clear); Urine Glucose Negative (Negative); Urine Protein Trace (Negative); Urine Urobilinogen 0.2 mg/dL (0.2-1.0)
[2023-08-29 18:39] LABS: Urine Color Dark-Yellow (Yellow)
--- NOTE | 2023-08-29 18:48 | EDPHYS ---
Physician Documentation [facility] Name: Aliyah Flores Age: 88 yrs Sex: Female : 1935 Arrival Date: 08/29/2023 Time: 14:11 Bed 19 Private MD: ED Physician Rakan Quiroga HPI: 08/29 20:33 This 88 yrs old Female presents to ER via EMS with complaints of Altered Mental Status. rt 20:33 History limited due to patient with altered mental status, patient is reportedly able rt to walk and talk without difficulty. Patient said to be confused. Denies other acute complaints, symptoms are moderate severity, no aggravating relieving factors.. Historical: - Allergies: 14:52 Azithromycin; nj1 - PMHx: 14:52 Anxiety; breast cancer; COPD; HTN; insomnia; nj1 - PSHx: 14:52 breast implants; double mastectomy; Tonsillectomy; Total abdominal hysterectomy; nj1 - Immunization history:: Adult Immunizations unknown. - Social history:: Smoking status: unknown. ROS: 20:33 Unable to obtain ROS due to altered mental status, rt Exam: 20:33 Constitutional: This is a well developed, well nourished patient who is awake, alert, rt and in no acute distress. Head/Face: Normocephalic, atraumatic. Chest/axilla: Normal chest wall appearance and motion. Nontender with no deformity. No lesions are appreciated. Cardiovascular: Regular rate and rhythm with a normal S1 and S2. No gallops, murmurs, or rubs. Normal PMI, no JVD. No pulse deficits. Respiratory: Lungs have equal breath sounds bilaterally, clear to auscultation and percussion. No rales, rhonchi or wheezes noted. No increased work of breathing, no retractions or nasal flaring. Abdomen/GI: Soft, non-tender, with normal bowel sounds. No distension or tympany. No guarding or rebound. No evidence of tenderness throughout. Skin: Warm, dry with normal turgor. Normal color with no rashes, no lesions, and no evidence of cellulitis. MS/ Extremity: Pulses equal, no cyanosis. Neurovascular intact. Full, normal range of motion. 20:33 ECG was reviewed by the Attending Physician. 20:33 Neuro: Awake, alert, confused, moves all 4 extremities equally, Vital Signs: 14:45 BP 148 / 79; Pulse 112; Resp 20; Temp 98.2(TE); Pulse Ox 94% on R/A; Weight 33.57 kg nj1 (R); Height 5 ft. 5 in. ; 16:05 BP 144 / 79; Pulse 111; Resp 21; Temp 98.8(TE); Pulse Ox 95% on R/A; nj1 17:24 BP 158 / 83; Pulse 109; Resp 19; Pulse Ox 98% ; nj1 18:30 BP 136 / 73; Pulse 104; Resp 26; Pulse Ox 97% on R/A; nj1 19:30 BP 164 / 90; Pulse 100; Resp 22; Pulse Ox 99% ; nj1 21:00 BP 134 / 77; Pulse 94; Resp 22; Temp 99.1(TE); Pulse Ox 97% on R/A; nj1 14:45 Body Mass Index 12.31 (33.57 kg, 165.1 cm) nj1 16:05 Pt refusing oral temp nj1 MDM: 14:17 Patient medically screened. rt 20:33 Differential Diagnosis: CVA, disturbance, infection. Data reviewed: vital signs, nurses rt notes, lab test result(s), EKG, radiologic studies. Consideration of Admission/Observation Patient was admitted/placed on observation. Management of patient was discussed with the following: Hospitalist: Agrees to admit. I considered the following discharge prescriptions or medication management in the emergency department Medications were administered in the Emergency Department. See MAR. Independent interpretation of the following test(s) in the Emergency Department X-Ray: My interpretation is Pneumonia seen on interpretation of x-ray images. Care significantly affected by the following chronic conditions: Hypertension. Counseling: I had a detailed discussion with the patient and/or guardian regarding the historical points, exam findings, and any diagnostic results supporting the discharge/admit diagnosis, lab results, radiology results, the need for further work-up and treatment in the hospital. 08/29 14:18 Order name: Basic Metabolic Panel; Complete Time: 17:38 rt 08/29 14:18 Order name: CBC with Diff rt 08/29 14:18 Order name: LFT's; Complete Time: 17:38 rt 08/29 14:18 Order name: Magnesium; Complete Time: 17:38 rt 08/29 14:18 Order name: Troponin HS; Complete Time: 17:38 rt 08/29 14:18 Order name: TSH; Complete Time: 17:38 rt 08/29 14:18 Order name: CPK; Complete Time: 17:38 rt 08/29 15:19 Order name: Blood Culture Adult (2) rt 08/29 15:19 Order name: Lactate w/ 2H reflex if indic.; Complete Time: 18:43 rt 08/29 18:37 Order name: Urinalysis w/ reflexes; Complete Time: 19:59 EDMS 08/29 20:06 Order name: Basic Metabolic Panel EDMS 08/29 20:06 Order name: Basic Metabolic Panel EDMS 08/29 20:06 Order name: CBC with Automated Diff EDMS 08/29 20:06 Order name: CBC with Automated Diff EDMS 08/29 14:18 Order name: XRAY Chest (1 view); Complete Time: 15:15 rt 08/29 14:18 Order name: CT Head Brain wo Cont; Complete Time: 15:15 rt 08/29 14:18 Order name: EKG; Complete Time: 14:18 rt 08/29 14:18 Order name: Cardiac monitoring; Complete Time: 14:50 rt 08/29 14:18 Order name: EKG - Nurse/Tech; Complete Time: 17:24 rt 08/29 14:18 Order name: IV Saline Lock; Complete Time: 14:37 rt 08/29 14:18 Order name: Labs collected and sent; Complete Time: 14:50 rt 08/29 14:18 Order name: O2 Per Protocol; Complete Time: 14:29 rt 08/29 14:18 Order name: O2 Sat Monitoring; Complete Time: 14:29 rt 08/29 15:19 Order name: Accucheck; Complete Time: 17:27 rt 08/29 15:19 Order name: IV Saline Lock - Large Bore; Complete Time: 16:05 rt 08/29 15:19 Order name: Vital Signs; Complete Time: 16:05 rt EC:33 Rate is 114 beats/min. Rhythm is regular, Sinus tachycardia with PACs. QRS [place] is rt Normal. ME interval is normal. QRS interval is normal. No Q waves. Clinical impression: NSR w/ Non-specific ST/T Changes. Administered Medications: 14:32 Drug: NS 0.9% IV 1000 ml IV at 1 bolus Per protocol; 1000 mL bolus Route: IV; Rate: 1 nj1 bolus; Site: left forearm; 16:26 Drug: Geodon IM 10 mg IM once Route: IM; Site: right vastus lateralis; nj1 17:21 Follow up: Response: No adverse reaction nj1 17:13 Drug: Rocephin - Rocephin (cefTRIAXone) IVPB 2 grams IVPB once over 30 mins; (mix in nj1 100 mL NS) Route: IVPB; Infused Over: 30 mins; Site: left forearm; Disposition Summary: 08/29/23 18:47 Hospitalization Ordered Notes: Hospitalization Status: Inpatient Admission rt Provider: Favian Granado rt Location: Telemetry/MedSurg (Inpatient) rt Condition: Stable rt Problem: new rt Symptoms: have improved rt Bed/Room Type: Standard rt Room Assignment: 232(08/29/23 20:38) Diagnosis - Unspecified bacterial pneumonia rt - Sepsis, unspecified organism rt Forms: - Medication Reconciliation Form rt - SBAR form rt - Leadership Thank You Letter rt Signatures: Dispatcher [employer] Dian Herr, Rakan Gentile RN, MD MD rt Gely Kendall RN RN nj1 Corrections: (The following items were deleted from the chart) 18:43 14:18 Urinalysis W/Microscopic+U.LAB.BRZ ordered. FAHADVT FAHADMS 20:38 18:47 rt marixa
--- NOTE | 2023-08-29 18:48 | ER ---
Nurse's Notes [facility] Name: Aliyah Flores Age: 88 yrs Sex: Female : 1935 Arrival Date: 08/29/2023 Time: 14:11 Bed 19 Private MD: Diagnosis: Unspecified bacterial pneumonia;Sepsis, unspecified organism Presentation: 08/29 14:24 Chief complaint: EMS states: Altered mental status, "pleasantly confused". Normally nj1 alert and orientated. Noted by PT today while at home. Care prior to arrival: IV initiated. 20 GA, in the left forearm, Glucose check: 200. 14:24 Method Of Arrival: EMS: [facility] nj1 14:45 Coronavirus screen: unknown. nj1 14:45 Ebola Screen: Unable to complete the Ebola screening because: confused. Initial Sepsis nj1 Screen: Does the patient meet any 2 criteria? HR > 90 bpm. No. Patient's initial sepsis screen is negative. Does the patient have a suspected source of infection? No. Patient's initial sepsis screen is negative. Risk Assessment: Do you want to hurt yourself or someone else? Unable to obtain. Onset of symptoms is unknown. 14:45 Acuity: AG 3 nj1 Historical: - Allergies: 14:52 Azithromycin; nj1 - PMHx: 14:52 Anxiety; breast cancer; COPD; HTN; insomnia; nj1 - PSHx: 14:52 breast implants; double mastectomy; Tonsillectomy; Total abdominal hysterectomy; nj1 - Immunization history:: Adult Immunizations unknown. - Social history:: Smoking status: unknown. Screenin:56 [facility] ED Fall Risk Assessment (Adult) Score/Fall Risk Level 3 or more points = High nj1 Risk Oriented to surroundings, Maintained a safe environment, Hourly rounding (assess needs \\T\\ fall precautionary measures) done, Used ambulatory aids as needed (educated on \\T\\ assisted with), Remained w/in arm's length of patient and in sight while toileting, Offered frequent toileting (1:1 observation), Utilized family, sitter, or virtual tool design engineer as indicated. Abuse screen: unable to obtain. Nutritional screening: No deficits noted. Tuberculosis screening: No symptoms or risk factors identified. Assessment: 14:54 General: Appears in no apparent distress. comfortable, Behavior is calm, cooperative. nj1 Pain: Unable to use pain scale. Patient is disoriented. Neuro: Level of Consciousness is awake, alert, obeys commands, confused, Oriented to person. Cardiovascular: Patient's skin is warm and dry. Rhythm is sinus tachycardia. Respiratory: Airway is patent Respiratory effort is even, unlabored. 16:25 Reassessment: Patient appears in no apparent distress at this time. No changes from nj1 previously documented assessment. Patient and/or family updated on plan of care and expected duration. Pain level reassessed. 17:24 Reassessment: Patient appears in no apparent distress at this time. No changes from nj1 previously documented assessment. Patient and/or family updated on plan of care and expected duration. Pain level reassessed. 18:30 Reassessment: Patient appears in no apparent distress at this time. No changes from nj1 previously documented assessment. Patient and/or family updated on plan of care and expected duration. Pain level reassessed. 19:30 Reassessment: Patient appears in no apparent distress at this time. No changes from nj1 previously documented assessment. Patient and/or family updated on plan of care and expected duration. Pain level reassessed. 21:00 Reassessment: Patient appears in no apparent distress at this time. No changes from nj1 previously documented assessment. Patient and/or family updated on plan of care and expected duration. Pain level reassessed. 21:02 Reassessment: Unsuccessful attempt to call report at this time. No answer (ext [id number]). nj1 22:37 Reassessment: Patient appears in no apparent distress at this time. No changes from jb4 previously documented assessment. Patient and/or family updated on plan of care and expected duration. Pain level reassessed. Pt transferred to [facility]. Vital Signs: 14:45 BP 148 / 79; Pulse 112; Resp 20; Temp 98.2(TE); Pulse Ox 94% on R/A; Weight 33.57 kg nj1 (R); Height 5 ft. 5 in. ; 16:05 BP 144 / 79; Pulse 111; Resp 21; Temp 98.8(TE); Pulse Ox 95% on R/A; nj1 17:24 BP 158 / 83; Pulse 109; Resp 19; Pulse Ox 98% ; nj1 18:30 BP 136 / 73; Pulse 104; Resp 26; Pulse Ox 97% on R/A; nj1 19:30 BP 164 / 90; Pulse 100; Resp 22; Pulse Ox 99% ; nj1 21:00 BP 134 / 77; Pulse 94; Resp 22; Temp 99.1(TE); Pulse Ox 97% on R/A; nj1 14:45 Body Mass Index 12.31 (33.57 kg, 165.1 cm) nj1 16:05 Pt refusing oral temp nj1 ED Course: 14:12 Patient arrived in ED. mb9 14:17 Rakan Qiuroga MD is Attending Physician. rt 14:24 Gely Kendall, JOSE LUIS is Primary Nurse. nj1 14:32 CT Head Brain wo Cont In Process Unspecified. EDMS 14:40 Maintain EMS IV. Dressing intact. Good blood return noted. Site clean \\T\\ dry. Gauge \\T\\ nj 1 site: 20g left fa. 14:52 Triage completed. nj1 14:53 Arm band placed on. nj1 14:57 Patient has correct armband on for positive identification. Bed in low position. Call [facility] in reach. Adult w/ patient. 15:07 XRAY Chest (1 view) In Process Unspecified. EDMS 16:55 Inserted saline lock: 22 gauge in right forearm, using aseptic technique. Blood nj1 collected. 17:12 Straight cath inserted, using sterile technique, 14 Fr. Specimen obtained. nj1 18:46 Favian Granado MD is Hospitalizing Provider. rt 21:22 No provider procedures requiring assistance completed. Patient admitted, IV remains in nj1 place. Administered Medications: 14:32 Drug: NS 0.9% IV 1000 ml IV at 1 bolus Per protocol; 1000 mL bolus Route: IV; Rate: 1 nj1 bolus; Site: left forearm; 16:26 Drug: Geodon IM 10 mg IM once Route: IM; Site: right vastus lateralis; nj1 17:21 Follow up: Response: No adverse reaction nj1 17:13 Drug: Rocephin - Rocephin (cefTRIAXone) IVPB 2 grams IVPB once over 30 mins; (mix in nj1 100 mL NS) Route: IVPB; Infused Over: 30 mins; Site: left forearm; Medication: 21:24 VIS not applicable for this client. nj1 Outcome: 18:47 Decision to Hospitalize by Provider. rt 21:23 Admitted to Med/surg accompanied by joaquim, via stretcher, room 232, Report called to nataliia Mosquera RN 21:23 Condition: stable 21:23 Instructed on the need for admit, 22:38 Patient left the ED. jb4 Signatures: Dispatcher [employer] EDMS Toribio Fung, RN RN jb4 Ameena Bradley, RN RN mb9 Rakan Quiroga MD MD rt Gely Kendall RN RN nj1 Corrections: (The following items were deleted from the chart) 17:22 16:05 BP 144 / 79; Pulse 111bpm; Resp 21bpm; Pulse Ox 95% RA; [place] [id number] 17:44 17:12 Straight cath inserted, using sterile technique, 16 Fr. Specimen obtained. [place] [id number] 18:11 18:11 Lien Swallow Protocol Exclusion Criteria: Unable to remain alert for testing: [place] [id number] 21:00 19:30 BP 134 / 77; Pulse 94bpm; Resp 22bpm; Pulse Ox 97% RA; Temp 99.1F Temporal; [place] [id number]
[2023-08-29 18:53] LABS: Urine Bacteria <20 /HPF (<20); Urine Mucus Slight /HPF (None Seen); Urine RBC <5 /HPF (None Seen)
[2023-08-29] MEDS ORDERED: ACETAMINOPHEN 325 MG TABLET PO PRN (20:01)
[2023-08-29] MEDS ORDERED: ONDANSETRON 4 MG/2 ML VIAL IV PRN (20:01)
--- NOTE | 2023-08-29 20:10 | P.HP ---
Certification for Inpatient Patient admitted to: Inpatient With expected LOS: >2 Midnights Practitioner: I am a practitioner with admitting privileges, knowledge of patient current condition, hospital course, and medical plan of care. Services: Services provided to patient in accordance with Admission requirements found in Title 42 Section 412.3 of the Code of Federal Regulations Patient History Date of Service: 08/30/23 Reason for admission: Pneumonia, failure to thrive. 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 As per family when she began to have issues with feeling of unwellness and cough was brought to the emergency room for evaluation. In the ED she had a chest x-ray done that showed worsening opacification in the left lung field depicting pneumonia so she was asked to be admitted for inpatient care. No overt episode of nausea, vomiting, diarrhea prior to this encounter. Patient appears significantly cachectic. Allergies azithromycin [From Zithromax] Allergy (Verified 03/15/23 09:02) unknown Steroids Adverse Reaction (Uncoded 03/15/23 09:02) "Anxious, Shaking" Home Medications: Levothyroxine Sodium 25 mcg PO DAILY 02/28/20 ALPRAZolam [Xanax*] 0.5 mg PO BEDTIME PRN 03/15/23 Linaclotide [Linzess] 145 mcg PO DAILY 03/15/23 Tramadol HCl [Ultram] 50 mg PO Q12H PRN 05/16/23 Albuterol Neb [Proventil 0.083% Neb Soln] 2.5 mg NEB [id number] PRN amp 05/23/23 - Past Medical/Surgical History Diabetic: No -: Breast CA -: melanoma -: HTN -: Mycobacterium abscessus -: Hysterectomy -: Mastectomy (bilateral) -: Breast Implant - Family History Father -: Heart disease, Diabetes Mother -: Other (see notes) Notes: Ulcer - Social History Alcohol use: No CD- Drugs: No Caffeine use: Yes Review of Systems General: Weakness, Malaise Eyes: Unremarkable ENT: Unremarkable Respiratory: Cough, Shortness of Breath Cardiovascular: Unremarkable Gastrointestinal: Unremarkable Genitourinary: Unremarkable Musculoskeletal: Unremarkable Neurological: Unremarkable Physical Examination - Physical Exam General: Alert, Mild distress HEENT: Atraumatic, Normocephalic Neck: Supple Respiratory: Diminished Cardiovascular: Regular rate/rhythm, Normal S1 S2 Gastrointestinal: Soft and benign Musculoskeletal: No swelling Neurological: Normal speech - Studies Laboratory Data (last 24 hrs) 08/29/23 08/29/23 14:45 14:45 WBC 14.60 H Hgb 10.4 L Hct 30.5 L Plt Count 601 H Sodium 141 Potassium 3.7 BUN 19 H Creatinine 0.81 Glucose 108 H Magnesium 2.1 Total Bilirubin 0.2 AST 11 L ALT < 10 L Alkaline Phosphatase 75 Assessment and Plan - Plan Pneumonia: Present on admission. Chest x-ray is concerning with left lung field opaci fication. Empiric antibiotic of Rocephin started for management. Follow clinical symptomatology. Failure to thrive: BMI calculated at 12.3. Will have field spec evaluate. Continue protein supplementation with Ensure protein max. Will continue multivitamin supplementation to stimulate appetite. Hypothyroidism: We will continue levothyroxine History of irritable bowel. Will continue Linzess. Prophylaxis: SCDs for DVT prophylaxis CODE STATUS: Full code Disposition: We will manage her multiple medical issues and she will be discharged when she is deemed clinically stable. - Advance Directives Does patient have a Living Will: Yes Does patient have a Durable POA for Healthcare: Yes
[2023-08-29] MEDS: ENSURE MAX PROTEIN 330 ML LIQUID PO SCH (21:00)
[2023-08-29 22:55] LABS: Blood Morphology Comment NOT SEEN (NOT SEEN); Platelet Estimate ADEQ
[2023-08-29] MEDS: NA CHLORIDE 0.9% 1,000 ML IV SCH (23:19)
[2023-08-30 01:13] VITALS: BMI 12.3
[2023-08-30 08:42] LABS: Absolute Lymphocytes (CBC) 0.8 K/uL (0.7-4.9); Lymphocytes % 6.2 % (15.3-44.8); MCV 93.9 fL (80-100); MPV 6.4 fL (7.6-11.3); Platelets 571 thou/uL (152-406); RBC Red Blood Cell Count 3.09 M/uL (3.86-4.86)
[2023-08-30 08:54] LABS: Potassium 3.9 mEq/L (3.5-5.1)
[2023-08-30] MEDS ORDERED: MULTIVITAMINS 5 ML ORAL SYR FT SCH (09:00)
[2023-08-30] MEDS: ENSURE MAX PROTEIN 330 ML LIQUID PO SCH ×2 (09:00→13:29)
[2023-08-30] MEDS: MULTIVITAMIN TAB PO SCH (09:15)
--- NOTE | 2023-08-30 12:33 | P.CNS ---
Date of Consult: 08/30/23 Reason for Consult: Altered mental status Chief Complaint: Pneumonia, failure to thrive. History of Present Illness: Patient is 88 years of age has been declining in the last few months has history of atypical Mycobacterium infection last saw her a couple of months ago in my office was complaining of progressive cough was treated with a cough syrup over the weekend according to her she became unresponsive in the past 2 days and was admitted to the hospital patient is currently unresponsive will open her eyes no fever or chills Allergies azithromycin [From Zithromax] Allergy (Verified 03/15/23 09:02) unknown Steroids Adverse Reaction (Uncoded 03/15/23 09:02) "Anxious, Shaking" Home Medications: Levothyroxine Sodium 25 mcg PO DAILY 02/28/20 ALPRAZolam [Xanax*] 0.5 mg PO BEDTIME PRN 03/15/23 Linaclotide [Linzess] 145 mcg PO DAILY 03/15/23 Tramadol HCl [Ultram] 50 mg PO Q12H PRN 05/16/23 Albuterol Neb [Proventil 0.083% Neb Soln] 2.5 mg NEB [id number] PRN amp 05/23/23 - Past Medical/Surgical History Diabetic: No -: Breast CA -: melanoma -: HTN -: Mycobacterium abscessus -: Hysterectomy -: Mastectomy (bilateral) -: Breast Implant - Family History Father Medical History: Heart disease, Diabetes Mother Medical History: Other (see notes) Notes: Ulcer - Social History Smoking Status: Unknown if ever smoked Alcohol use: No CD- Drugs: No Caffeine use: Yes Place of Residence: Home Review of Systems is unable to be obtained Physical Examination Temp Pulse Resp BP Pulse Ox 98.3 F 95 H 17 140/80 95 08/30/23 08:00 08/30/23 08:00 08/30/23 08:00 08/30/23 08:00 08/30/23 08:00 General: Unresponsive Respiratory: Clear to auscultation bilaterally Cardiovascular: No edema, Regular rate/rhythm, Normal S1 S2 Musculoskeletal: No clubbing Integumentary: No rashes Laboratory Data (last 24 hrs) 08/29/23 08/29/23 14:45 14:45 WBC 14.60 H Hgb 10.4 L Hct 30.5 L Plt Count 601 H Sodium 141 Potassium 3.7 BUN 19 H Creatinine 0.81 Glucose 108 H Magnesium 2.1 Total Bilirubin 0.2 AST 11 L ALT < 10 L Alkaline Phosphatase 75 - Problems (1) Pneumonia Current Visit: No Status: Acute Plan: Patient is 88 years of age has had progressive decline in the last few months I suspect is from his atypical Mycobacterium infection he had recent severe coughing spells chemistries reviewed white count is elevated is currently very altered not communicate will open eyes discussed with Dr. Salas to withhold all antibiotic therapy and plan for hospice care in the meantime we will add Merrem and thiamine Qualifiers: Pneumonia type: due to unspecified organism
[2023-08-30] MEDS: THIAMINE 200 MG/2 ML INJ IVP SCH ×2 (12:48→22:33)
[2023-08-30] MEDS: Meropenem 500 MG in NA CHLORIDE 0.9% 100 ML IV SCH ×2 (12:48→16:55)
[2023-08-30] MEDS ORDERED: CEFTRIAXONE 1,000 MG in NA CHLORIDE 0.9% 50 ML IVPB SCH (16:00)
[2023-08-30] MEDS: NA CHLORIDE 0.9% 1,000 ML IV SCH (16:55)
--- NOTE | 2023-08-30 17:58 | P.PN ---
Subjective Date of Service: 08/30/23 Chief Complaint: Pneumonia, failure to thrive. Subjective: Worsening DARREN HAS LUDIN INFECTION AND SEVERE CACHEXIA WITH IT AND COPD. SHE BECAME VERY LETHARGIC AT HOME AND WAS BROUGHT TO ER. SHE WAS NOT ABLE TO WAKE UP THIS AM. I TALKED TO SHE IN DOWN TO 70 LBS, HAS LIVED TO 88 AND NOT GETTING BETTER WITH THIS CHRONIC LUDIN INFECTION. HE AGREES FOR HOSPICE. Review of Systems 10-point ROS is otherwise unremarkable General: Weakness, Malaise Physical Examination - Vital Signs Temperature: 97.5 F Blood Pressure: 157/76 Pulse: 103 Respirations: 18 Pulse Ox (%): 103 - Physical Exam General: Cachectic, Moderate distress, Unresponsive HEENT: Atraumatic, PERRLA, EOMI Neck: Supple, JVD not distended Respiratory: Clear to auscultation bilaterally, Normal air movement Cardiovascular: Regular rate/rhythm, Normal S1 S2 Gastrointestinal: Normal bowel sounds, No tenderness Musculoskeletal: No tenderness Integumentary: No rashes Neurological: Normal speech, Normal tone, Normal affect Lymphatics: No axilla or inguinal lymphadenopathy - Studies Laboratory Data (last 24 hrs) 08/29/23 14:45 WBC 14.60 H Hgb 10.4 L Hct 30.5 L Plt Count 601 H Microbiology Data (last 24 hrs): 08/29/23 16:55 Blood - Blood Anaerobic Blood Culture - Final 08/29/23 17:10 Blood - Blood Anaerobic Blood Culture - Final Medications List Reviewed: Yes Assessment And Plan - Current Problems (Diagnosis) (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 NOT ABLE TO RECOVER AND STAY WELL EVEN AFTER HEAVY ANTIBIOTICS. (2) COPD (chronic obstructive pulmonary disease) Current Visit: No Status: Chronic Plan: CHRONIC ISSUE WE CAN USE THIS OR LUDIN FOR HOSPICE DIAGNOSIS. (3) Protein calorie malnutrition Current Visit: Yes Status: Chronic Plan: CHRONIC AND SEC TO ABOVE, MEDS LIKE REMERON , MEGACE TRIED WITHOUT HELP. Qualifiers: Protein-calorie malnutrition severity: severe Qualified Code(s): E43 - Unspecified severe protein-calorie malnutrition
[2023-08-30] MEDS: ENSURE ENLIVE 237 ML CAN PO SCH (21:00)
[2023-08-31] MEDS: Meropenem 500 MG in NA CHLORIDE 0.9% 100 ML IV SCH ×2 (01:02→09:05)
[2023-08-31] MEDS: ENSURE ENLIVE 237 ML CAN PO SCH (09:00)
[2023-08-31] MEDS: MULTIVITAMIN TAB PO SCH (09:00)
[2023-08-31] MEDS: THIAMINE 200 MG/2 ML INJ IVP SCH (09:04)
[2023-08-31 17:07] VITALS: BP 176/85; TEMP 97.8
--- NOTE | 2023-08-31 19:52 | P.DS ---
Admission Date: 08/29/23 Discharge Date: 08/31/23 Disposition: HOSPICE-MEDICAL FACILITY Reason for Admission: Pneumonia, failure to thrive. 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 SHE IS LESS THAN 70 LBS IN WEIGHT AND HAVING COPD WITH LUDIN IS NOT LETTING HER SURVIVE. THIS TIME SHE WAS NOT ABLE TO WAKE UP YESTERDAY ADN TODAY SHE DID NOT RECOGNIZE ANYONE. SHE HAS LESS THAN 6 MTS TO LIVE MOST LIKELY. CARLOS AND SON CAME TO OFFICE AND AFTER DISCUSSION THEY AGREED FOR HOSPICE RECOMMENDATION. SHE IS SENT TO [facility]. Vital Signs/Physical Exam: Temp Pulse Resp BP Pulse Ox 97.8 F 97 H 16 176/85 H 95 08/31/23 16:00 08/31/23 16:00 08/31/23 16:00 08/31/23 16:00 08/31/23 16:00 Laboratory Data at Discharge: WBC 13.00 thou/uL (4.3-10.9) H 08/30/23 08:31 Hgb 9.9 g/dL (12.0-15.0) L 08/30/23 08:31 Hct 29.0 % (36.0-45.0) L 08/30/23 08:31 Plt Count 571 thou/uL (152-406) H 08/30/23 08:31 Sodium 143 mEq/L (136-145) 08/30/23 08:31 Potassium 3.9 mEq/L (3.5-5.1) 08/30/23 08:31 BUN 18 mg/dL (7-18) 08/30/23 08:31 Creatinine 0.72 mg/dL (0.55-1.02) 08/30/23 08:31 Glucose 100 mg/dL (74-106) 08/30/23 08:31 Magnesium 2.1 mg/dL (1.6-2.4) 08/29/23 14:45 Total Bilirubin 0.2 mg/dL (0.2-1.0) 08/29/23 14:45 AST 11 U/L (15-37) L 08/29/23 14:45 ALT < 10 U/L (13-56) L 08/29/23 14:45 Alkaline Phosphatase 75 U/L (45-117) 08/29/23 14:45 Home Medications: Levothyroxine Sodium 25 mcg PO DAILY 02/28/20 ALPRAZolam [Xanax*] 0.5 mg PO BEDTIME PRN 03/15/23 Linaclotide [Linzess] 145 mcg PO DAILY 03/15/23 Tramadol HCl [Ultram] 50 mg PO Q12H PRN 05/16/23 Albuterol Neb [Proventil 0.083% Neb Soln] 2.5 mg NEB [id number] PRN amp 05/23/23 Physician Discharge Instructions: Pt going to [facility] hospice Followup: Molina Salas MD [Primary Care Provider] -
[2023-08-31 19:56] VITALS: O2SAT 95
--- NOTE | 2023-09-01 15:26 | EKG ---
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
== END 2023-08-31 19:05 | disposition hospice, inpatient (51) | DRG 871 ==
LOC: ER 14:11 → ERHOLD 20:00 → 2ND 21:33
PROVIDERS: ADMIT Internal Medicine Nephrology; ATTEND Internal Medicine
DX: A41.9 Sepsis, unspecified organism (principal); E43 Unspecified severe protein-calorie malnutrition; J18.9 Pneumonia, unspecified organism; R40.20 Unspecified coma; Z68.1 Body mass index [BMI] 19.9 or less, adult; R64 Cachexia; A31.8 Other mycobacterial infections; J44.0 Chronic obstructive pulmonary disease with (acute) lower respiratory infection; E03.9 Hypothyroidism, unspecified; I10 Essential (primary) hypertension; R62.7 Adult failure to thrive; Z51.5 Encounter for palliative care; Z85.3 Personal history of malignant neoplasm of breast; Z88.1 Allergy status to other antibiotic agents; Z98.82 Breast implant status; Z79.01 Long term (current) use of anticoagulants; Z90.13 Acquired absence of bilateral breasts and nipples; Z90.710 Acquired absence of both cervix and uterus; Z79.890 Hormone replacement therapy; Z79.899 Other long term (current) drug therapy
CPT/HCPCS: 36415; 51702; 70450; 71045; 80048; 80076; 81001; 82550; 83605; 83735; 84443; 84484; 85025; 87040; 93005; 96372; 96374; 99285; J0696; J3411; J3486; J7030